=== PATIENT | female | born 1935 | race Caucasian/White ===

== ENCOUNTER 2017-01-19 08:52 | Outpatient (CLI) | payer MEDICARE, OTHER ==
[2016-10-20 02:32] VITALS: BP 124/68
[2017-01-19 09:41] LABS: eGFR (African) > 60; eGFR (Non-African) > 60
== END 2017-01-19 08:53 ==
LOC: LAB 08:52
PROVIDERS: ATTEND Internal Medicine
DX: E11.9 Type 2 diabetes mellitus without complications (principal)
CPT/HCPCS: 36415; 80048; 83036

== ENCOUNTER 2017-03-27 11:10 | Outpatient (CLI) | payer MEDICARE, OTHER ==
[2016-10-20 02:32] VITALS: BP 124/68
[2017-03-27 11:37] LABS: BASOPHILS % 0.7 (0.0-1.5); EOSINOPHILS % 2.1 % (0.0-6.8); MEAN CORPUSCULAR VOLUME 92.6 fl (80.0-100.0); MONOCYTES % 5.5 % (0.0-11.0); NEUTROPHILS # 3.8 # k/uL (1.4-7.7)
[2017-03-27 11:59] LABS: eGFR (African) > 60; eGFR (Non-African) > 60
== END 2017-03-27 11:11 ==
LOC: LAB 11:10
PROVIDERS: ATTEND Internal Medicine Hematology & Oncology
DX: R10.84 Generalized abdominal pain (principal); K21.0 Gastro-esophageal reflux disease with esophagitis; I48.2 Chronic atrial fibrillation; I25.9 Chronic ischemic heart disease, unspecified; M15.9 Polyosteoarthritis, unspecified
CPT/HCPCS: 36415; 80053; 80061; 83880; 84443; 85025

== ENCOUNTER 2017-06-17 19:06 | Emergency (ER) | payer MEDICARE, OTHER ==
[2017-06-17] MEDS ORDERED: Lidocaine 1% 5ml(IM or SUTURE)(PAIN CLINIC) IJ ONE (19:09)
[2017-06-17] MEDS ORDERED: SODIUM BICARBONATE 2.4 MEQ VIAL INJ ONE (19:10)
[2017-06-17] MEDS ORDERED: ceFAZolin SODIUM 1 GM in 0.9 % SODIUM CHLORIDE 50 ML IV ONE (19:59)
[2017-06-17] MEDS ORDERED: DIPH,PERTUSS(ACELL),TET VAC/PF 0.5 ML DISP.SYRIN IM ONE (19:59)
[2017-06-17] MEDS ORDERED: BUPIVACAINE HCL/PF 5 MG/ML 10ML VIAL IJ ONE (20:17)
--- NOTE | 2017-06-17 21:08 | Diagnostic Imaging Report ---
MARLY GEIGER (SUE) - ER [facility] [address] [facility].[address] [address] Report Submission Date: Jun 17, 2017 8:06:53 PM CDT Patient Study Name: EFRAIN FINLEY Date: Jun 17, 2017 7:39:03 PM CDT Modality Type: CR Gender: F Description: UPPER EXTREMITY : 39 Institution: [facility] Physician: MARLY GEIGER (SUE) - ER Examination: Plain film finger History: Injury Comparison exams: None available Findings: 3 views the finger demonstrates a transverse lucency involving the distal phalanx of the 4th digit. Articular degenerative changes. No other acute osseous or soft tissue abnormality. Impression: Transverse fracture distal phalanx 4th digit. Electronically signed on Jun 17, 2017 8:06:53 PM CDT by: Karan HUMMEL
[2017-06-17 21:19] VITALS: BP 155/58
--- NOTE | 2017-06-17 22:54 | ED Physician Documentation ---
Upper Extremity Injury - HISTORIAN Historian: patient, child - HPI Stated Complaint: Left ring finger laceration Chief Complaint: Upper Extremity Injury Onset: just prior to arrival Context: blow Modifying Factors: pain on movement Further Comments: yes (82 year old female patient brought in by family for evaluation of left ring finger. Family reports patient closed finger in car door. C/O severe pain. Last tetanus 01/2016.) - ROS CONST: recent illness (shoulder injury) CVS/RESP: none NEURO: none MS/SKIN/LYMPH: none GI/: denies: nausea, vomiting - PAST HX Past History: Rt handed, diabetes Type 2, other (OA, COPD, GERD) Allergies/Adverse Reactions: Allergies Allergy/AdvReac Type Severity Reaction Status Date / Time No Known Allergies Allergy Verified 06/17/17 20:28 Home Medications: Ambulatory Orders Medication Instructions Recorded Multivitamin [Tab-A-Norm] 1 each PO DAILY 11/18/14 Budesonide [Pulmicort] 0.5 mg IH D 05/20/15 Pramipexole Di-HCl [Mirapex] 0.25 mg PO BID 05/20/15 Ranitidine HCl [Zantac] 150 mg PO D 05/20/15 Folic Acid [FA-8] 0.8 mg PO D 12/17/15 Metformin HCl [Metformin HCl ER] 1,000 mg PO HS 10/20/16 Atorvastatin Calcium [Lipitor] 20 mg PO HS 06/17/17 Cephalexin [Keflex] 500 mg PO QID #40 capsule 06/17/17 Cyanocobalamin [Vitamin B-12] 1,000 mcg PO BID 06/17/17 Gabapentin [Neurontin] 300 mg PO HS 06/17/17 Metformin HCl [Glucophage] 500 mg PO BID 06/17/17 Mupirocin [Bactroban] 1 appl TP BID #1 tube 06/17/17 - SOCIAL HX Smoking History: non-smoker - FAMILY HX Family History: denies: none - VITAL SIGNS Vital Signs: Vital Signs Temp Pulse Resp BP Pulse Ox 86 22 155/58 96 06/17/17 21:15 06/17/17 21:15 06/17/17 21:15 06/17/17 21:15 - REVIEWED ASSESSMENTS Nursing Assessment Reviewed: Yes Vitals Reviewed: Yes Procedures Wound Location: other (right 4th digit) Wound Length: 2 Wound's Depth, Shape: other ("C" shape) Wound Explored: clean Irrigated w/ Saline (ccs): 1,000 Betadine Prep?: No (chlorhexidine) Anesthesia: 1% Lidocaine (digital block at 1915), Other (2030 - Marcaine .5% digital block ) Suture Size/Type: 5:0 Number of Sutures: 6 Deep Layer Suture Size/Type: 5:0 Sterile Dressing Applied?: Yes Splint Applied?: Yes Progress: 2009 Consult with [place] [facility] Dr Huynh, agrees with wash out, antibiotics, closure and splint. Have patient follow up on Thursday at 8:30 in office. Patient tolerated procedure well, flexion and extension intact at DIP joint of 4th phalanx. No tendons visualized. Edges well approximated. Dressing and splint applied by nursing. Reviewed wound care instructions with patient and family . ED Results Lab/Radiology - Radiology Radiology Impressions: Examination: Plain film finger History: Injury Comparison exams: None available Findings: 3 views the finger demonstrates a transverse lucency involving the distal phalanx of the 4th digit. Articular degenerative changes. No other acute osseous or soft tissue abnormality. Impression: Transverse fracture distal phalanx 4th digit. Electronically signed on Jun 17, 2017 8:06:53 PM CDT by: Karan Mason - Orders Orders: ED Orders Category Date Time Status Cleanse with NS and Chlorhexid 1T Care 06/17/17 19:10 Active FINGER 2 VIEWS OR MORE [RAD] Stat Exams 06/17/17 Completed Bupivacaine HCl/Pf [Marcaine 0.5%] Med 06/17/17 20:17 Discontinued 5 mg IJ NOW ONE Diph,Pertuss(Acell),Tet Vac/Pf [Adacel] Med 06/17/17 19:59 Discontinued 0.5 ml IM .ONCE ONE Lidocaine 1% 5ml(IM or SUTURE) [Xylocaine] Med 06/17/17 19:09 Discontinued 50 mg IJ NOW ONE Sodium Bicarbonate [Neut] Med 06/17/17 19:10 Discontinued 2.4 meq INJ NOW ONE ceFAZolin SODIUM [Ancef] 1 gm Med 06/17/17 19:59 Discontinued 0.9 % Sodium Chloride [Sodium Chloride] 50 ml IV NOW Upper Extremity Injury Physic - Physical Exam General Appearance: moderate distress Hand: normal ROM, abrasions (Abrasion proximal to left 4th digit nail bed, volar aspect.), laceration (palmar aspect of left 4th digit. ), stiffness, swelling Wrist: normal inspection, non-tender, no evidence of injury, normal ROM Elbow/Forearm: normal inspection, non-tender, no evidence of injury, normal ROM Neuro/Vascular/Tendon: no vascular compromise, motor nml, sensation nml, ROM nml Skin: warm,dry Resp/CVS: chest non-tender, breath sounds nml, heart sounds nml, no resp. distress, lungs clear, reg. rate & rhythm Abdomen: non-tender, pelvis stable Discharge Clincal Impression: Phalanx, distal fracture of finger Qualifiers: Encounter type: initial encounter Finger: ring finger Fracture type: open Fracture alignment: nondisplaced Laterality: left Qualified Code(s): S62.665B - Nondisplaced fracture of distal phalanx of left ring finger, initial encounter for open fracture Clincal Impression: (Ruled Out): Closed fracture of phalanx of digit of hand Prescriptions: Cephalexin [Keflex] 500 mg PO QID #40 capsule Mupirocin [Bactroban] 1 appl TP BID #1 tube Additional Instructions: Follow up Thursday, June 29, 2017 at 8:[address] Huynh Keep the wound clean and dry until it has healed. You can wash or shower after 24 hours. Do not soak the wound in water and make sure it is dry afterwards (gently pat the area dry with a clean towel). Do not get into a swimming pool, hot tub, cohen or river until your stitches are removed. To remove your dressing, gently pull it off. If needed, you can dampen it with water then gently pull it off. Clean the laceration twice a day with hibiclens and rinse with water clean away any scabbed area Apply thin coat of antibiotic ointment after cleaning the wound. Cover with non-adherent bandage if able. If you have pain, take simple pain relief medication such as Tylenol or ibuprofen. If bandages or dressings get wet, they will need to be changed. Have your stitches removed at your doctors office in 7-10 days. Discharged with bactroban ointment apply a thin coat twice a day. A prescription was sent to the pharmacy. Home Medications: Ambulatory Orders Multivitamin [Tab-A-Norm] 1 each PO DAILY 11/18/14 Budesonide [Pulmicort] 0.5 mg IH D 05/20/15 Pramipexole Di-HCl [Mirapex] 0.25 mg PO BID 05/20/15 Ranitidine HCl [Zantac] 150 mg PO D 05/20/15 Folic Acid [FA-8] 0.8 mg PO D 12/17/15 Metformin HCl [Metformin HCl ER] 1,000 mg PO HS 10/20/16 Atorvastatin Calcium [Lipitor] 20 mg PO HS 06/17/17 Cephalexin [Keflex] 500 mg PO QID #40 capsule 06/17/17 Cyanocobalamin [Vitamin B-12] 1,000 mcg PO BID 06/17/17 Gabapentin [Neurontin] 300 mg PO HS 06/17/17 Metformin HCl [Glucophage] 500 mg PO BID 06/17/17 Mupirocin [Bactroban] 1 appl TP BID #1 tube 06/17/17 Condition: Good Disposition: 01 HOME, SELF-CARE Decision to Admit: NO Decision Time: 21:00
== END 2017-06-17 21:15 | disposition home or self-care (01) ==
LOC: ED 19:06
DX: S62.645B Nondisplaced fracture of proximal phalanx of left ring finger, initial encounter for open fracture (principal); X58.XXXA Exposure to other specified factors, initial encounter; Y93.9 Activity, unspecified; Y99.9 Unspecified external cause status
CPT/HCPCS: 73140; J0690; J3490; 12001; 90471; 96365; 99283; S1016

== ENCOUNTER 2017-08-29 01:24 | Emergency (ER) | payer MEDICARE, OTHER ==
--- NOTE | 2017-08-29 01:52 | ED Physician Documentation ---
Fall - HISTORIAN Historian: patient, child - HPI Stated Complaint: fall/arm,thigh pain Chief Complaint: Fall Additional Information: pt went to sleep in chair awoke when stood up fell forward w/pain lt shoulder and lt hip. had shoulder replacement this shoulder 6 weeks ago had been doingl well had total llhip rt hip sev yrs ago. had not lstood since fall ambulance delivery to [facility] at daughters request Onset: just prior to arrival (approxd 1230), today Where: home Context: lost balance r: mild Associated Symptoms:: no loss of consciousness Location of Pain/Injury: lower extremity. denies: head, neck, face, chest, abdomen, upper back, mid back, lower back, L shoulder Injury to Right Extremity: none Injury to Left Extremity: shoulder, thigh - ROS CONST: no problems. denies: recent illness, fever, sweating, weakness NEURO: denies: dizziness, anxiety, depression MS/SKIN/LYMPH: denies: weakness, numbness, neck pain, back pain, ankle swelling , leg swelling EYES/ENT: denies: problems with vision CVS/RESP: none GI/: denies: nausea - PAST HX Past History: cardiac disease, diabetes Type 1 Allergies/Adverse Reactions: Allergies Allergy/AdvReac Type Severity Reaction Status Date / Time No Known Allergies Allergy Verified 08/29/17 01:32 Home Medications: Ambulatory Orders Medication Instructions Recorded Multivitamin [Tab-A-Norm] 1 each PO DAILY 11/18/14 Pramipexole Di-HCl [Mirapex] 0.25 mg PO BID 05/20/15 Ranitidine HCl [Zantac] 150 mg PO D 05/20/15 Folic Acid [FA-8] 0.8 mg PO D 12/17/15 Metformin HCl [Metformin HCl ER] 1,000 mg PO HS 10/20/16 Atorvastatin Calcium [Lipitor] 20 mg PO HS 06/17/17 Cyanocobalamin [Vitamin B-12] 1,000 mcg PO BID 06/17/17 Gabapentin [Neurontin] 300 mg PO HS 06/17/17 Mupirocin [Bactroban] 1 appl TP BID #1 tube 06/17/17 - SOCIAL HX Smoking History: less than 1 pack/day Alcohol Use: none Drug Use: none - FAMILY HX Family History: no significant history - VITAL SIGNS Vital Signs: Vital Signs Temp Pulse Resp BP Pulse Ox 98.2 F 76 16 131/55 95 08/29/17 01:25 08/29/17 01:25 08/29/17 01:25 08/29/17 01:25 08/29/17 01:25 - REVIEWED ASSESSMENTS Nursing Assessment Reviewed: Yes Vitals Reviewed: Yes Fall Physical Exam - Physical Exam General Appearance: mild distress Head: non-tender, no swelling, no obvious injury Neck: non-tender, painless ROM Eye: ERIKA, EOMI ENT: nml external inspection Resp/CVS: chest non-tender, breath sounds nml, heart sounds nml Abdomen: soft, non-tender Neuro: oriented x3, sensation nml, motor nml, mood/affect nml, other (pt can rom lt shoulder w/o difficulty and palpation is non tender and non remarkable also lt hip is non tende and can stand and walk "as good as usual" w/o sig pain anywhere) Discharge Clincal Impression: fall w/ltshoulder and lt hip pain Referrals: Royal Ferrell MD [Primary Care Provider] - 2 Days Comments: disc cond w/pt and calli after exam they elect no xray at this time. pt walked out of here w/o difficulty. 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 daughter helped the pt by arm Condition: Good Disposition: HOME, SELF-CARE Decision to Admit: [id number] Decision Time: 01:59
[2017-08-29 02:05] VITALS: BP 131/55
== END 2017-08-29 01:45 | disposition home or self-care (01) ==
LOC: ED 01:24
DX: M25.512 Pain in left shoulder (principal); M25.552 Pain in left hip; W19.XXXA Unspecified fall, initial encounter; Y93.9 Activity, unspecified; Y99.9 Unspecified external cause status
CPT/HCPCS: 99283

== ENCOUNTER 2017-09-08 07:34 | Outpatient (CLI) | payer MEDICARE, OTHER ==
[2017-09-06 05:47] VITALS: BP 156/75
[2017-09-08 08:18] LABS: BASOPHILS % 0.6 (0.0-1.5); EOSINOPHILS % 5.2 % (0.0-6.8); MEAN CORPUSCULAR VOLUME 89.8 fl (80.0-100.0); MONOCYTES % 4.6 % (0.0-11.0); NEUTROPHILS # 3.8 # k/uL (1.4-7.7)
[2017-09-08 08:39] LABS: eGFR (African) > 60; eGFR (Non-African) > 60
--- NOTE | 2017-09-08 13:11 | Diagnostic Imaging Report ---
BIGG BRANDT [facility] [address] [facility] [address] [address] Report Submission Date: Sep 08, 2017 9:11:46 AM CHARITY FUNDRAISER Patient Study Name: EFRAIN FINLEY Date: Sep 08, 2017 8:04:32 AM CHARITY FUNDRAISER Modality Type: US Gender: F Description: US ABD LIMITED : 39 Institution: [facility] Physician: BIGG BRANDT Examination: Ultrasound gallbladder History: Distended gallbladder. Comparison exam: CT scan dated 04 September 2017 Findings: Sonographic evaluation of the right upper quadrant demonstrates the gallbladder without stones or sludge. Gallbladder wall measures 2.6 mm. Common bile duct measures 5.6 mm. No intrahepatic biliary dilation. Liver demonstrates normal homogeneous echogenicity. No mass or cyst. Normal flow on color analysis. Normal Doppler waveforms. Right kidney measures 10.9 cm in length. No cortical mass or cyst. No hydronephrosis. Pancreatic region without gross irregularity. Impression: No gallstone or obstruction. Unremarkable abdominal ultrasound. Electronically signed on Sep 08, 2017 9:11:46 AM CHARITY FUNDRAISER by: Karan HUMMEL
[2017-09-08 21:08] LABS: SERUM IRON 34 ug/dL (37-145)
== END 2017-09-08 08:24 ==
LOC: RAD 07:34
PROVIDERS: ATTEND Family Medicine
DX: R10.11 Right upper quadrant pain (principal); I10 Essential (primary) hypertension; I48.2 Chronic atrial fibrillation; J44.9 Chronic obstructive pulmonary disease, unspecified; R10.84 Generalized abdominal pain; E03.9 Hypothyroidism, unspecified; K21.0 Gastro-esophageal reflux disease with esophagitis
CPT/HCPCS: 36415; 76705; 80053; 83540; 83550; 83690; 84443; 85025

== ENCOUNTER 2017-09-11 19:43 | Inpatient (IN) | payer MEDICARE, OTHER ==
[2017-09-11] MEDS ORDERED: 0.9 % SODIUM CHLORIDE 500 ML IV ONE (21:06)
[2017-09-11] MEDS ORDERED: IPRATROPIUM/ALBUTEROL SULFATE 3 ML AMPUL.NEB NEB ONE (21:06)
[2017-09-11] MEDS ORDERED: BUDESONIDE 0.5MG/2ML AMPUL.NEB NEB ONE (21:10)
[2017-09-11 21:38] LABS: BASOPHILS % 0.9 (0.0-1.5); EOSINOPHILS % 4.4 % (0.0-6.8); MEAN CORPUSCULAR HEMOGLOBIN 28.4 pg (28.0-34.0); MEAN CORPUSCULAR VOLUME 88.2 fl (80.0-100.0); MONOCYTES % 5.6 % (0.0-11.0); NEUTROPHILS # 3.6 # k/uL (1.4-7.7)
[2017-09-11 21:40] LABS: eGFR (African) > 60; eGFR (Non-African) > 60
[2017-09-11] MEDS ORDERED: 0.9 % SODIUM CHLORIDE 1,000 ML IV SCH (22:10)
[2017-09-11] MEDS ORDERED: 0.9 % SODIUM CHLORIDE 1,000 ML IV ONE (22:11)
[2017-09-11] MEDS ORDERED: CITALOPRAM HYDROBROMIDE 20 MG TABLET PO ONE (23:52)
[2017-09-12] MEDS: IPRATROPIUM/ALBUTEROL SULFATE 3 ML AMPUL.NEB NEB SCH ×7 (00:15→21:06)
[2017-09-12] MEDS: FLUDROCORTISONE ACETATE 0.1 MG TABLET PO SCH ×2 (00:16→09:02)
[2017-09-12] MEDS: 0.9 % SODIUM CHLORIDE 1,000 ML IV SCH ×3 (00:16→23:30)
[2017-09-12] MEDS: LEVOTHYROXINE SODIUM 100 MCG TABLET PO SCH ×2 (00:16→06:00)
[2017-09-12] MEDS: FOLIC ACID 1 MG TABLET PO SCH ×2 (00:16→09:03)
[2017-09-12] MEDS ORDERED: CITALOPRAM HYDROBROMIDE 20 MG TABLET ONE (00:20)
[2017-09-12] MEDS ORDERED: ENOXAPARIN SODIUM 30 MG/0.3 ML DISP.SYRIN SQ ONE ×2 (00:20→14:13)
[2017-09-12] MEDS: ENOXAPARIN SODIUM 30 MG/0.3 ML DISP.SYRIN SQ SCH (00:25)
[2017-09-12 00:29] VITALS: BMI 29.2
--- NOTE | 2017-09-12 01:01 | Diagnostic Imaging Report ---
MANUEL HARRISON [facility] [address] [facility] [address] [address] Report Submission Date: Sep 11, 2017 10:03:38 PM BUSINESS SYSTEMS ADVISOR Patient Study Name: EFRAIN FINLEY Date: Sep 11, 2017 9:35:38 PM BUSINESS SYSTEMS ADVISOR Modality Type: CR Gender: F Description: CHEST : 39 Institution: [facility] Physician: MANUEL HARRISON Chest, AP portable History: Emphysema Findings: There are postoperative changes consistent with bilateral shoulder arthroplasty. Patient is status post anterior cervical fusion. Stimulator electrodes superimpose the midthoracic spine. There is no infiltrate, effusion or pneumothorax. Heart size and pulmonary vascularity are normal. There is calcification in the thoracic aorta. Since 03 September 2017, no significant change has occurred. Impression: No active disease and no interval change. Electronically signed on Sep 11, 2017 10:03:38 PM BUSINESS SYSTEMS ADVISOR by: Ruben HUMMEL
[2017-09-12] MEDS ORDERED: FLUDROCORTISONE ACETATE 0.1 MG TABLET PO ONE (02:40)
[2017-09-12] MEDS ORDERED: MULTIVITAMIN 1 EACH TABLET ONE (02:40)
[2017-09-12] MEDS ORDERED: CYANOCOBALAMIN (VITAMIN B12) 1,000 MCG TABLET PO ONE ×2 (02:40→14:14)
[2017-09-12] MEDS ORDERED: LEVOTHYROXINE SODIUM 100 MCG TABLET PO ONE (02:41)
[2017-09-12] MEDS ORDERED: FOLIC ACID 1 MG TABLET PO ONE (02:41)
[2017-09-12 06:15] LABS: APPEARANCE,URINE CLEAR (CLEAR); COLOR,URINE YELLOW (YELLOW); OCCULT BLOOD,URINE NEGATIVE (NEGATIVE); PH URINE 5.5 (5.0 - 8.0); UROBILINOGEN URINE 0.2 Eu (0.2-1.0)
--- NOTE | 2017-09-12 06:15 | ED Physician Documentation ---
General Adult - HISTORIAN Historian: child - HPI Stated Complaint: soa with activity through out the day Chief Complaint: General Adult Additional Information: somnolent Onset: other (today) Timing: still present Severity: moderate Modifying Factors: hx of multiple medical problems Further Comments: no Last known Well Date: 09/10/17 Last Known Well Time: 20:00 - ROS CONST: recent illness EYES/ENT: none CVS/RESP: shortness of breath (hx of copd) GI/: none MS/SKIN/LYMPH: none NEURO/PSYCH: denies: headache, fainting, dizziness, tingling, numbness, difficulty walking, difficulty with speech, anxiety, depression - PAST HX Past History: COPD, other (chf, hyponatremia, gerd) Other History: diabetes Type 2, other (depression, hyperlipidemia) Surgeries/Procedures: other (see nurses notes) Immunizations: referred to PCP Allergies/Adverse Reactions: Allergies Allergy/AdvReac Type Severity Reaction Status Date / Time No Known Allergies Allergy Verified 09/11/17 20:21 Home Medications: Ambulatory Orders Medication Instructions Recorded Multivitamin [Tab-A-Norm] 1 each PO DAILY 11/18/14 Pramipexole Di-HCl [Mirapex] 0.25 mg PO BID 05/20/15 Ranitidine HCl [Zantac] 150 mg PO D 05/20/15 Folic Acid [FA-8] 0.8 mg PO D 12/17/15 Metformin HCl [Metformin HCl ER] 1,000 mg PO HS 10/20/16 Atorvastatin Calcium [Lipitor] 20 mg PO HS 06/17/17 Cyanocobalamin [Vitamin B-12] 1,000 mcg PO BID 06/17/17 Gabapentin [Neurontin] 300 mg PO HS 06/17/17 - SOCIAL HX Smoking History: non-smoker, quit greater than 1 year Alcohol Use: none Drug Use: none - FAMILY HX Family History: No - VITAL SIGNS Vital Signs: Vital Signs Temp Pulse Resp BP Pulse Ox 97.1 F L 71 20 112/49 96 09/12/17 06:00 09/12/17 06:00 09/12/17 06:00 09/12/17 06:00 09/12/17 06:00 - REVIEWED ASSESSMENTS Nursing Assessment Reviewed: Yes Vitals Reviewed: Yes Progress - Results/Orders Results/Orders: labs and cxr ordered - Progress Progress: pt. treated with NS in ER Critical Care Note - Critical Care Note Total Time (mins): 60 ED Results Lab/Radiology - Lab Results Lab Results: Lab Results 09/11/17 09/11/17 09/11/17 21:53 21:18 21:18 WBC 7.00 K/ul K/ul (4.00-12.00) RBC 4.09 M/ul M/ul (3.90-5.20) Hgb 11.6 g/dL L g/dL (12.0-16.0) Hct 36.1 % % (34.5-46.5) MCV 88.2 fl fl (80.0-100.0) MCH 28.4 pg pg (28.0-34.0) MCHC 32.2 g/dL g/dL (30.0-36.0) RDW 14.1 % % (11.3-14.3) Plt Count 392 K/mm3 K/mm3 (130-400) Neut % (Auto) 51.4 % % (39.0-79.0) Lymph % (Auto) 36.2 % % (16.0-50.0) Payette % (Auto) 5.6 % % (0.0-11.0) Eos % (Auto) 4.4 % % (0.0-6.8) Baso % (Auto) 0.9 (0.0-1.5) Neut # (Auto) 3.6 # k/uL # k/uL (1.4-7.7) Lymph # (Auto) 2.6 # k/uL # k/uL (0.6-4.0) Payette # (Auto) 0.4 # k/uL # k/uL (0.0-0.9) Eos # (Auto) 0.3 # k/uL # k/uL (0.0-0.6) Baso # (Auto) 0.1 # k/uL # k/uL (0.0-0.5) Reactive Lymphs % 1.5 % % (0.0-5.0) Reactive Lymphs # 0.1 # k/uL # k/uL (0.0-0.8) PT INR APTT Sodium 126 mmol/L L mmol/L (136-145) Potassium 4.5 mmol/L mmol/L (3.5-5.1) Chloride 88 mmol/L L mmol/L (98-107) Carbon Dioxide 30 mmol/L mmol/L (22-30) BUN 27 mg/dL H mg/dL (7-17) Creatinine 1.10 mg/dL H mg/dL (0.52-1.04) Estimated Creat Clear 48 Est GFR ( Amer) > 60 (60 - ) Est GFR (Non-Af Amer) > 60 (60 - ) Glucose 216 mg/dL H mg/dL (74-106) Lactate 1.6 U/L U/L (0.7-2.1) Calcium 9.1 mg/dL mg/dL (8.4-10.2) Total Bilirubin 0.2 mg/dL mg/dL (0.2-1.3) AST 24 U/L U/L (15-46) ALT 30 U/L U/L (13-69) Alkaline Phosphatase 84 U/L U/L (38-126) Troponin I NT-Pro-B Natriuret Pep Total Protein 6.5 g/dL g/dL (6.3-8.2) Albumin 3.5 g/dL g/dL (3.5-5.0) Lipase 402 U/L H U/L (23-300) 09/11/17 09/11/17 20:18 19:22 WBC RBC Hgb Hct MCV MCH MCHC RDW Plt Count Neut % (Auto) Lymph % (Auto) Payette % (Auto) Eos % (Auto) Baso % (Auto) Neut # (Auto) Lymph # (Auto) Payette # (Auto) Eos # (Auto) Baso # (Auto) Reactive Lymphs % Reactive Lymphs # PT 9.3 Seconds L Seconds (9.4-11.6) INR 0.89 L (0.9-1.2) APTT 25.0 Seconds Seconds (24.5-32.8) Sodium Potassium Chloride Carbon Dioxide BUN Creatinine Estimated Creat Clear Est GFR ( Amer) Est GFR (Non-Af Amer) Glucose Lactate Calcium Total Bilirubin AST ALT Alkaline Phosphatase Troponin I < 0.03 ng/mL L ng/mL (0.03-0.06) NT-Pro-B Natriuret Pep 605.0 pg/mL H pg/mL (15.0-450.0) Total Protein Albumin Lipase - Radiology Radiology Impressions: cxr clear - Orders Orders: ED Orders Category Date Time Status Activity as ordered D Care 09/11/17 23:52 Active Assess pulse oximetry Q4H Care 09/11/17 23:52 Active Continuous EKG monitoring Q1H Care 09/11/17 23:52 Active Document Bowel Movement Q8H Care 09/11/17 23:[address] Ferrell NOW Care 09/11/17 23:52 Ordered Further Nursing Orders [id number] Care 09/11/17 23:52 Active Further Nursing Orders D Care 09/11/17 23:52 Active Inpatient Telemetry NOW Care 09/11/17 23:52 Ordered Monitor for changes in mental Q4 Care 09/11/17 23:52 Active Obtain weight DAILY@0500 Care 09/11/17 23:[address] IV Lock 1T Care 09/11/17 21:06 Completed Vital Signs Q4 Care 09/11/17 23:52 Active No Concentrated Sweets Diet 09/11/17 Breakfast Ordered Regular Diet 09/11/17 Breakfast Ordered CHEST 1 VIEW [RAD] Routine Exams 09/11/17 Completed BMP Routine Lab 09/12/17 06:00 Ordered CBC/PLATELET/DIFF Routine Lab 09/11/17 21:18 Completed CMP Routine Lab 09/11/17 21:18 Completed LACTATE Routine Lab 09/11/17 21:18 Completed LIPASE Routine Lab 09/11/17 21:53 Completed NT-proBNP Routine Lab 09/11/17 19:22 Completed PT-INR Routine Lab 09/11/17 20:18 Completed PTT Routine Lab 09/11/17 20:18 Completed TROPONIN I (cTnI) Routine Lab 09/11/17 19:22 Completed 0.9 % Sodium Chloride [Normal Saline] 1,000 ml Med 09/11/17 22:10 Discontinued IV .Q1H 0.9 % Sodium Chloride [Normal Saline] 1,000 ml Med 09/11/17 22:11 Discontinued IV .STK-MED 0.9 % Sodium Chloride [Normal Saline] 1,000 ml Med 09/11/17 23:52 Ordered IV Q10H 0.9 % Sodium Chloride [Normal Saline] 500 ml Med 09/11/17 21:06 Discontinued IV NOW Atorvastatin Calcium [Lipitor] Med 09/12/17 21:00 Ordered 20 mg PO HS Budesonide [Pulmicort] Med 09/11/17 21:10 Discontinued 0.5 mg NEB 1T ONE Budesonide [Pulmicort] Med 09/12/17 09:00 Ordered 0.5 mg NEB BID Citalopram Hydrobromide [Celexa] Med 09/11/17 23:52 Once 10 mg PO NOW ONE Cyanocobalamin [Vitamin B-12] Med 09/12/17 09:00 Ordered 1,000 mcg PO BID Enoxaparin Sodium [Lovenox] Med 09/11/17 23:52 Ordered 30 mg SQ QD Fludrocortisone Acetate [Florinef] Med 09/11/17 23:52 Ordered 0.1 mg PO DAILY Folic Acid [Folvite] Med 09/11/17 23:52 Ordered 1 mg PO DAILY Gabapentin [Neurontin] Med 09/12/17 21:00 Ordered 300 mg PO HS Ipratropium/Albuterol Sulfate [Duoneb] Med 09/11/17 21:06 Discontinued 3 ml NEB NOW ONE Ipratropium/Albuterol Sulfate [Duoneb] Med 09/11/17 23:52 Ordered 3 ml NEB Q4 Levothyroxine Sodium [Synthroid] Med 09/11/17 23:52 Ordered 112 mcg PO 0700 Metformin HCl [Glucophage] Med 09/12/17 07:30 Ordered 1,000 mg PO [id number] Multivitamin [Tab-A-Norm] Med 09/12/17 09:00 Ordered 1 each PO DAILY Umeclidinium Brm/Vilanterol Tr [Anoro Ellipta 62.5-25 Med 09/12/17 09:00 Ordered Mcg INH] 1 puff IH DAILY Resuscitation Status Routine Oth 09/11/17 23:52 Ordered Oxygen Daily Oxygen 09/11/17 23:52 Ordered EKG WITH COMPARISON Routine Ther 09/11/17 Stop Req Transfer Routine Transfer 09/11/17 Completed General Adult Physical Exam - PHYSICAL EXAM GENERAL APPEARANCE: mild distress EENT: eye inspection normal, ENT inspection normal, pharynx normal, no signs of dehydration, ERIKA, no nystagmus, TM's nml NECK: normal inspection, thyroid normal, supple RESPIRATORY: no resp distress, chest non-tender, breath sounds normal CVS: reg rate & rhythm, heart sounds normal, equal pulses ABDOMEN: soft, no organomegaly, normal bowel sounds BACK: normal inspection, no CVA tenderness SKIN: warm/dry, normal color EXTREMITIES: non-tender, normal range of motion, no evidence of injury, no edema NEURO: other (somnolent) Discharge Clincal Impression: Hyponatremia Condition: Stable Disposition: ADMITTED INPATIENT Decision to Admit: [id number] Date of Decison to Admit: 09/11/17 Decision Time: 07:00
[2017-09-12 07:27] LABS: eGFR (African) > 60; eGFR (Non-African) > 60
--- NOTE | 2017-09-12 08:42 | History and Physical Report ---
History of Present Illnes - History of Present Illness Reason for Visit: found down History of Present Illness: Aure is an 82yo woman with a history of multiple medical problems including heart disease, DM, COPD, h/o pancreatitis and chronic hyponatremia. Her daughter found her on the floor by her chair yesterday after Aure failed to answer the phone multiple times. Aure was transferred to [facility] where she was somnolent and found to have sodium level of sodium level of 126, it usually hovers around 130. WBC count was normal and chest Xray was clear. She was admitted to the floor and put on oral fluid restrictions, IV normal saline, and Solu-Cortef. Currently she reports feeling fine. She has no memory of the events preceding her hospitalization yesterday. She denies pain. 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: Peripheral neuropathy Renal/: Other (chronic hyponatremia) Endocrine: Diabetes - Past Surgical History Past Surgical History: Appendectomy, Hysterectomy (total), Total Hip Replacement , Tonsillectomy, Other (AP Bladder suspension, PCI with stenting, nerve stimulator implantation, total shoulder replacement) - Past Social History Smoke: <1 pack per day Alcohol: None Drugs: None Lives: Alone Domestic Violence: Negative - Health Maintenance Health Maintenance: Cholesterol, Influenza Vaccine, Pneumococcal Vaccine, Mammogram Pneumonia Vaccine: No (already had) Resuscitation Status: Resusciation Status Resuscitation Status Full Code Review of Systems - Review of Systems Constitutional: negative: Fever, Chills Eyes: negative: pain, redness ENT: negative: Ear Pain, Nose Pain Respiratory: negative: Cough, Pleuritic Pain Cardiovascular: negative: Chest Pain, Edema Gastrointestinal: negative: Nausea, Abdominal Pain Genitourinary: negative: Dysuria, Incontinence Musculoskeletal: negative: Neck Pain, Back Pain Skin: negative: Rash, Lesions Neurological: Weakness. negative: Change in Speech - Medications/Allergies Allergies/Adverse Reactions: Allergies Allergy/AdvReac Type Severity Reaction Status Date / Time No Known Allergies Allergy Verified 09/11/17 20:21 Current Inpatient Medications: Current Inpatient Medications Albuterol/Ipratropium (Duoneb) 3 ml NEB Q4 [facility] Last Admin: 09/12/17 04:44 Dose: 3 ml Atorvastatin Calcium (Lipitor) 20 mg PO HS [facility] Budesonide (Pulmicort) 0.5 mg NEB BID [facility] Citalopram Hydrobromide (Celexa) 10 mg PO NOW ONE Stop: 09/11/17 23:53 Last Admin: 09/12/17 00:25 Dose: 10 mg Cyanocobalamin (Vitamin B-12) 1,000 mcg PO BID [facility] Enoxaparin Sodium (Lovenox) 30 mg SQ QD [facility] Stop: 09/24/17 23:53 Last Admin: 09/12/17 00:25 Dose: 30 mg Fludrocortisone Acetate (Florinef) 0.1 mg PO DAILY [facility] Last Admin: 09/12/17 00:16 Dose: Not Given Folic Acid (Folvite) 1 mg PO DAILY [facility] Last Admin: 09/12/17 00:16 Dose: Not Given Gabapentin (Neurontin) 300 mg PO [facility] Sodium Chloride (Normal Saline) 1,000 mls @ 50 mls/hr IV Q10H [facility] Last Admin: 09/12/17 07:43 Dose: 50 mls/hr Levothyroxine Sodium (Synthroid) 112 mcg PO 0700 [facility] Last Admin: 09/12/17 06:00 Dose: Not Given Metformin HCl (Glucophage) 1,000 mg PO [id number] [facility] Last Admin: 09/12/17 07:41 Dose: 1,000 mg Miscellaneous (Umeclidinium Brm/Vilanterol Tr [Anoro Ellipta 62.5-25 Mcg Inh]) 1 puff IH DAILY [facility] Multivitamins (Tab-A-Norm) 1 each PO DAILY [facility] Exam - Exam Vital Signs: Vital Signs (72 hours) 09/11/17 09/11/17 09/12/17 23:51 23:52 00:34 Temperature 98.5 F Pulse Rate 87 71 Pulse Rate [ 67 Left Pulse ox] Respiratory 20 Rate Blood Pressure 127/51 [Right Arm] O2 Sat by Pulse 96 96 Oximetry 09/12/17 09/12/17 09/12/17 00:44 01:50 02:00 Temperature 97.9 F Pulse Rate 72 70 Pulse Rate [ 72 Left Pulse ox] Respiratory 18 Rate Blood Pressure 112/53 [Right Arm] O2 Sat by Pulse 97 Oximetry 09/12/17 09/12/17 09/12/17 02:25 03:47 03:48 Temperature Pulse Rate 68 67 Pulse Rate [ Left Pulse ox] Respiratory Rate Blood Pressure [Right Arm] O2 Sat by Pulse 97 Oximetry 09/12/17 09/12/17 09/12/17 05:00 06:00 08:22 Temperature 97.1 F L 98.7 F Pulse Rate 78 70 Pulse Rate [ 71 72 Left Pulse ox] Respiratory 20 16 Rate Blood Pressure 112/49 90/42 [Right Arm] O2 Sat by Pulse 96 97 Oximetry General: Alert, Oriented to Person, Oriented to Place, Oriented to Time, Cooperative, No acute distress HEENT: Atraumatic, PERRLA, EOMI Neck: No: Stridor, Rigidity Lungs: Clear to auscultation. No: Respiratory Distress Cardiovascular: Regular rate, Normal S1, Normal S2 Abdomen: Soft, No tenderness Integumentary: Normal, [place], Warm, Dry Extremities: No cyanosis, No edema, No tenderness/swelling Neurological: Normal speech, Normal tone, Cranial nerves 3-12 NL Psych/Mental Status: Mental status NL, Appropriate Affect - Laboratory Results Laboratory Results: Laboratory Results 09/12/17 06:35 Sodium 130 L Potassium 4.1 Chloride 98 Carbon Dioxide 26 BUN 25 H Creatinine 1.00 Estimated Creat Clear 58 Est GFR ( Amer) > 60 Est GFR (Non-Af Amer) > 60 Glucose 122 H Calcium 8.2 L Assessment/Plan - Assessment/Plan (1) Hyponatremia Status: Acute Current Visit: Yes Assessment: Na on admission 126, now 130 Plan: continue oral fluid restriction, IV fluid, and Solu-Cortef (2) Altered mental status Status: Acute Current Visit: No Assessment: Pt was somnolent in ER, now AAOx3 although daughter says they just talked about the date. Pt is sitting up eating breakfast. Has good appetite. (3) Anemia Status: Chronic Current Visit: No Qualifiers: Anemia type: unspecified type Qualified Code(s): D64.9 - Anemia, unspecified Plan: Hgb 11.6, will monitor, Pt stable (4) Diabetes mellitus type 2 Status: Acute Current Visit: No Plan: Continue Metformin (5) Chronic obstructive pulmonary disease Status: Acute Current Visit: No Assessment: Stable Plan: continue Duoneb and Pulmicort as ordered VTE Assessment - RISK FACTOR SCORE VTE RISK FACTOR SCORES: AGE OVER 60 YEARS, SMOKER - RISK VTE MODERATE RISK: SCORE OF 2 (RISK PROXIMAL DVT 2-4%) PROPHYAXIS NEEDED
[2017-09-12] MEDS: MULTIVITAMIN 1 EACH TABLET PO SCH (09:03)
[2017-09-12] MEDS: CYANOCOBALAMIN (VITAMIN B12) 1,000 MCG TABLET PO SCH ×2 (09:03→21:04)
[2017-09-12] MEDS: [UNRECOGNIZED DRUG - MIXTURE] IH SCH (09:03)
[2017-09-12] MEDS ORDERED: IPRATROPIUM/ALBUTEROL SULFATE 3 ML AMPUL.NEB NEB ONE ×3 (09:10→20:26)
[2017-09-12] MEDS ORDERED: BUDESONIDE 0.5MG/2ML AMPUL.NEB NEB ONE ×2 (09:10→20:25)
[2017-09-12] MEDS: BUDESONIDE 0.5MG/2ML AMPUL.NEB NEB SCH ×2 (09:33→21:09)
[2017-09-12] MEDS ORDERED: 0.9 % SODIUM CHLORIDE 1,000 ML IV ONE (10:07)
[2017-09-12] MEDS ORDERED: SALINE FLUSH 10 ML DISP.SYRIN IVF ONE (10:15)
[2017-09-12] MEDS ORDERED: ATORVASTATIN CALCIUM 80 MG TABLET PO ONE (14:14)
[2017-09-12] MEDS ORDERED: GABAPENTIN 300 MG CAPSULE ONE (14:14)
[2017-09-12] MEDS ORDERED: GABAPENTIN 300 MG CAPSULE PO SCH (21:00)
[2017-09-12] MEDS ORDERED: ATORVASTATIN CALCIUM 80 MG TABLET PO SCH (21:00)
[2017-09-13] MEDS ORDERED: IPRATROPIUM/ALBUTEROL SULFATE 3 ML AMPUL.NEB NEB ONE ×5 (00:32→12:36)
[2017-09-13] MEDS: IPRATROPIUM/ALBUTEROL SULFATE 3 ML AMPUL.NEB NEB SCH ×4 (00:33→12:54)
[2017-09-13] MEDS: ENOXAPARIN SODIUM 30 MG/0.3 ML DISP.SYRIN SQ SCH (00:37)
[2017-09-13] MEDS ORDERED: FLUDROCORTISONE ACETATE 0.1 MG TABLET PO ONE (02:35)
[2017-09-13] MEDS ORDERED: FOLIC ACID 1 MG TABLET PO ONE (02:35)
[2017-09-13] MEDS ORDERED: CYANOCOBALAMIN (VITAMIN B12) 1,000 MCG TABLET PO ONE (02:35)
[2017-09-13] MEDS ORDERED: MULTIVITAMIN 1 EACH TABLET ONE (02:35)
[2017-09-13] MEDS ORDERED: SALINE FLUSH 10 ML DISP.SYRIN IVF ONE (04:09)
[2017-09-13 06:58] LABS: eGFR (African) > 60; eGFR (Non-African) > 60
[2017-09-13] MEDS ORDERED: LEVOTHYROXINE SODIUM 100 MCG TABLET PO SCH (07:00)
[2017-09-13] MEDS: FLUDROCORTISONE ACETATE 0.1 MG TABLET PO SCH (07:36)
[2017-09-13] MEDS: [UNRECOGNIZED DRUG - MIXTURE] IH SCH (07:37)
[2017-09-13] MEDS: CYANOCOBALAMIN (VITAMIN B12) 1,000 MCG TABLET PO SCH (07:37)
[2017-09-13] MEDS: FOLIC ACID 1 MG TABLET PO SCH (07:37)
[2017-09-13] MEDS: MULTIVITAMIN 1 EACH TABLET PO SCH (07:37)
[2017-09-13] MEDS ORDERED: BUDESONIDE 0.5MG/2ML AMPUL.NEB NEB ONE (07:50)
[2017-09-13] MEDS: BUDESONIDE 0.5MG/2ML AMPUL.NEB NEB SCH (08:28)
[2017-09-13 08:29] LABS: MEAN CORPUSCULAR HEMOGLOBIN 28.4 pg (28.0-34.0); MEAN CORPUSCULAR VOLUME 95.4 fl (80.0-100.0)
--- NOTE | 2017-09-13 10:40 | Inpatient Progress Note ---
Subjective - Required Recertification Statement I anticipate X number of days because-include discharge plan: 0, discharge to home today - Review of Systems Events since last encounter: Pt c/o CP yesterday evening. EKG was performed and troponins x 3 were measured. No changes were found on EKG and troponins were all <0.3. The chest pain resolved after breathing treatment was performed and has not recurred. This morning she has been up walking around well without assistance and feels ready to go home. General: Denies: Chills, Fatigue Pulmonary: Denies: Dyspnea, Pleuritic Chest Pain Cardiovascular: Denies: Palpitations, Light Headedness Gastrointestinal: Denies: Nausea, Vomiting Musculoskeletal: Denies: Neck Pain, Arm Pain Neurological: Denies: Weakness, Change in Speech, Confusion Objective - Exam Vitals and I&O: Vital Signs Temp 97 F L 09/13/17 08:52 Pulse 81 09/13/17 08:52 Resp 16 09/13/17 08:52 BP 108/97 09/13/17 08:52 Pulse Ox 97 09/13/17 08:52 Intake & Output 09/12/17 09/12/17 09/13/17 11:59 23:59 11:59 Intake Total 1160 1380 2140 Output Total 1250 Balance 8555 841 5896 Weight 70.307 kg 159.8 kg Intake: IV 800 100 Left Antecubital 800 right forearm 100 Oral 360 1380 2040 Output: Urine 1050 Stool 200 Other: Voiding Method Toilet Toilet # Voids 1 1 10 # Bowel Movements 0 General: Alert, Oriented to Person, Oriented to Place, Oriented to Time, Cooperative, No acute distress HEENT: Atraumatic, PERRLA Lungs: Clear to auscultation. No: Respiratory Distress, Wheezes, Rhonchi Cardiovascular: Regular rate, Normal S1, Normal S2 Abdomen: No: Distended, Rigid Skin: Normal, [place], Warm, Dry Neurological: Normal speech, Normal tone. No: Generalized Weakness Psych/Mental Status: Mental status NL, Mood NL, Appropriate Affect - Results Results: Laboratory Results WBC 6.30 K/ul (4.00-12.00) 09/13/17 06:00 RBC 3.34 M/ul (3.90-5.20) L 09/13/17 06:00 Hgb 9.5 g/dL (12.0-16.0) L 09/13/17 06:00 Hct 31.9 % (34.5-46.5) L 09/13/17 06:00 MCV 95.4 fl (80.0-100.0) 09/13/17 06:00 MCH 28.4 pg (28.0-34.0) 09/13/17 06:00 MCHC 29.8 g/dL (30.0-36.0) L 09/13/17 06:00 RDW 13.9 % (11.3-14.3) 09/13/17 06:00 Plt Count 300 K/mm3 (130-400) 09/13/17 06:00 Neut % (Auto) 51.4 % (39.0-79.0) 09/11/17 21:18 Lymph % (Auto) 36.2 % (16.0-50.0) 09/11/17 21:18 [place] % (Auto) 5.6 % (0.0-11.0) 09/11/17 21:18 Eos % (Auto) 4.4 % (0.0-6.8) 09/11/17 21:18 Baso % (Auto) 0.9 (0.0-1.5) 09/11/17 21:18 Neut # (Auto) 3.6 # k/uL (1.4-7.7) 09/11/17 21:18 Lymph # (Auto) 2.6 # k/uL (0.6-4.0) 09/11/17 21:18 [place] # (Auto) 0.4 # k/uL (0.0-0.9) 09/11/17 21:18 Eos # (Auto) 0.3 # k/uL (0.0-0.6) 09/11/17 21:18 Baso # (Auto) 0.1 # k/uL (0.0-0.5) 09/11/17 21:18 Reactive Lymphs % 1.5 % (0.0-5.0) 09/11/17 21:18 Reactive Lymphs # 0.1 # k/uL (0.0-0.8) 09/11/17 21:18 PT 9.3 Seconds (9.4-11.6) L 09/11/17 20:18 INR 0.89 (0.9-1.2) L 09/11/17 20:18 APTT 25.0 Seconds (24.5-32.8) 09/11/17 20:18 Sodium 130 mmol/L (136-145) L 09/13/17 06:00 Potassium 3.9 mmol/L (3.5-5.1) 09/13/17 06:00 Chloride 97 mmol/L (98-107) L 09/13/17 06:00 Carbon Dioxide 27 mmol/L (22-30) 09/13/17 06:00 BUN 24 mg/dL (7-17) H 09/13/17 06:00 Creatinine 1.00 mg/dL (0.52-1.04) 09/13/17 06:00 Estimated Creat Clear 60 09/13/17 06:00 Est GFR ( Amer) > 60 (60-) 09/13/17 06:00 Est GFR (Non-Af Amer) > 60 (60-) 09/13/17 06:00 Glucose 125 mg/dL (74-106) H 09/13/17 06:00 Lactate 1.6 U/L (0.7-2.1) 09/11/17 21:18 Calcium 8.5 mg/dL (8.4-10.2) 09/13/17 06:00 Total Bilirubin 0.2 mg/dL (0.2-1.3) 09/13/17 06:00 AST 17 U/L (15-46) 09/13/17 06:00 ALT 32 U/L (13-69) 09/13/17 06:00 Alkaline Phosphatase 78 U/L (38-126) 09/13/17 06:00 Troponin I < 0.03 ng/mL (0.03-0.06) L 09/13/17 05:15 NT-Pro-B Natriuret Pep 605.0 pg/mL (15.0-450.0) H 09/11/17 19:22 Total Protein 5.9 g/dL (6.3-8.2) L 09/13/17 06:00 Albumin 3.1 g/dL (3.5-5.0) L 09/13/17 06:00 Lipase 402 U/L (23-300) H 09/11/17 21:53 Urine Color Yellow (YELLOW) 09/11/17 20:15 Urine Appearance Clear (CLEAR) 09/11/17 20:15 Urine pH 5.5 (5.0 - 8.0) 09/11/17 20:15 Ur Specific Black 1.010 (1.010-1.030) 09/11/17 20:15 Urine Protein Negative mg/dL (NEGATIVE) 09/11/17 20:15 Urine Ketones Negative mg/dL (NEGATIVE) 09/11/17 20:15 Urine Occult Blood Negative (NEGATIVE) 09/11/17 20:15 Urine Nitrite Negative (NEGATIVE) 09/11/17 20:15 Urine Bilirubin Negative (NEGATIVE) 09/11/17 20:15 Urine Urobilinogen 0.2 Eu (0.2-1.0) 09/11/17 20:15 Ur Leukocyte Esterase Negative (NEGATIVE) 09/11/17 20:15 Urine Glucose Negative mg/dL (NEGATIVE) 09/11/17 20:15 Assessment/Plan - Assessment/Plan (1) Hyponatremia Status: Acute Current Visit: Yes Assessment: Stable after fluid restrictions were lifted yesterday and IV fluids were held after 8:30 this morning. Pt clinically well. Plan: Continue fludrocortisone at home (2) Altered mental status Status: Resolved Current Visit: No Assessment: resolved Plan: continue Fludrocortisone at home, AMS thought secondary to acute on chronic hyponatremia (3) Anemia Status: Chronic Current Visit: No Qualifiers: Anemia type: unspecified type Qualified Code(s): D64.9 - Anemia, unspecified Assessment: Hgb dropped from 11.6 to 9.5. H/o chronic mild anemia. Pt clinically well. Will recheck later this week as OP. (4) Diabetes mellitus type 2 Status: Chronic Current Visit: No Assessment: Stable Plan: Continue metformin (5) Chronic obstructive pulmonary disease Status: Chronic Current Visit: No Assessment: Stable Plan: Continue duoneb and pulmicort as prescribed at home.
[2017-09-13] MEDS: 0.9 % SODIUM CHLORIDE 1,000 ML IV SCH ×2 (11:16→16:46)
[2017-09-13 14:06] VITALS: BP 156/73
--- NOTE | 2017-09-15 08:28 | Discharge Summary ---
Discharge Summary - Discharge Sumary History of Present Illness: Aure has a history of chronic hyponatremia, which has been known to affect her mental status in the past. Her daughter found her on the floor in front of her chair, weak and confused. Aure presented to [facility] ER in a state of somnolence, but hemodynamically stable. Na was found to be 126. She was admitted started on oral fluid restriction and fludrocortisone. Additional Instructions: Discharge: to home. Diet: Diabetic. Meds: continue home meds and Fludricortisone 0.1mg daily. Activity: as tolerated. f/u: with Dr. Ferrell within a week Condition at Discharge: Stable Home Medications: Ambulatory Orders Medication Instructions Recorded Multivitamin [Tab-A-Norm] 1 each PO DAILY 11/18/14 Pramipexole Di-HCl [Mirapex] 0.25 mg PO BID 05/20/15 Ranitidine HCl [Zantac] 150 mg PO D 05/20/15 Folic Acid [FA-8] 0.8 mg PO D 12/17/15 Metformin HCl [Metformin HCl ER] 1,000 mg PO HS 10/20/16 Atorvastatin Calcium [Lipitor] 20 mg PO HS 06/17/17 Cyanocobalamin [Vitamin B-12] 1,000 mcg PO BID 06/17/17 Gabapentin [Neurontin] 300 mg PO HS 06/17/17 Fludrocortisone Acetate 0.1 mg PO QDAY 14 Days tablet 09/13/17 Consultations this Visit: None Procedures this Visit: None Allergies/Adverse Reactions: Allergies Allergy/AdvReac Type Severity Reaction Status Date / Time No Known Allergies Allergy Verified 09/11/17 20:21 Hospital Course: After being on oral fluid restriction overnight, IV NaCl, and fludrocortisone overnight she felt back to normal with a Na of 130. She was restarted on oral fluid and remained awake and alert with normal ambulation throughout the rest of her stay. Na on day of discharge, after almost 24 hours back on oral fluids was again 130. - Final Diagnosis (1) Altered mental status Problems: resolved (2) Anemia Problems: will check as OP, chronic anemia that decreased from 11.6 to 9.5 during her stay (3) Diabetes mellitus type 2 Problems: stable (4) Chronic obstructive pulmonary disease Problems: stable (5) Hyponatremia Problems: improved during hospital stay, will continue fludrocortisone at home and f/u with telegraph installer when possible
== END 2017-09-13 17:25 | disposition home or self-care (01) | DRG 191 ==
LOC: ED 19:43 → SOUTH 23:49
PROVIDERS: ADMIT Physician Assistant; ATTEND Physician Assistant
DX: J44.9 Chronic obstructive pulmonary disease, unspecified (principal); E87.1 Hypo-osmolality and hyponatremia; I50.9 Heart failure, unspecified; F17.210 Nicotine dependence, cigarettes, uncomplicated; E11.9 Type 2 diabetes mellitus without complications; E78.5 Hyperlipidemia, unspecified; R41.82 Altered mental status, unspecified; D64.9 Anemia, unspecified
CPT/HCPCS: 36415; 71010; 80048; 80053; 81002; 83605; 83690; 83880; 84484; 85025; 85027; 85610; 85730; 93005; J1650; J7030; J7060; J7626; 99222; 99238; 99283; 99284; 99291; S1016

== ENCOUNTER 2017-09-21 16:13 | Outpatient (CLI) | payer MEDICARE, OTHER ==
[2017-09-21 17:37] LABS: BASOPHILS % 0.8 (0.0-1.5); EOSINOPHILS % 4.4 % (0.0-6.8); MEAN CORPUSCULAR HEMOGLOBIN 28.6 pg (28.0-34.0); MEAN CORPUSCULAR VOLUME 93.7 fl (80.0-100.0); MONOCYTES % 6.1 % (0.0-11.0); NEUTROPHILS # 3.1 # k/uL (1.4-7.7)
[2017-09-21 18:08] LABS: eGFR (African) > 60; eGFR (Non-African) > 60
== END 2017-09-21 16:14 ==
LOC: LAB 16:13
PROVIDERS: ATTEND Family Medicine
DX: D50.9 Iron deficiency anemia, unspecified (principal); E11.9 Type 2 diabetes mellitus without complications; I10 Essential (primary) hypertension; E87.1 Hypo-osmolality and hyponatremia
CPT/HCPCS: 36415; 80053; 85025

== ENCOUNTER 2017-10-05 08:58 | Outpatient (CLI) | payer MEDICARE, OTHER ==
[2017-10-05 09:14] LABS: BASOPHILS % 1.1 (0.0-1.5); EOSINOPHILS % 5.2 % (0.0-6.8); MEAN CORPUSCULAR HEMOGLOBIN 29.2 pg (28.0-34.0); MEAN CORPUSCULAR VOLUME 89.4 fl (80.0-100.0); MONOCYTES % 5.1 % (0.0-11.0); NEUTROPHILS # 3.6 # k/uL (1.4-7.7)
[2017-10-05 09:42] LABS: eGFR (African) > 60; eGFR (Non-African) > 60
== END 2017-10-05 09:05 ==
LOC: LAB 08:58
PROVIDERS: ATTEND Family Medicine
DX: D64.9 Anemia, unspecified (principal); E87.1 Hypo-osmolality and hyponatremia; K85.00 Idiopathic acute pancreatitis without necrosis or infection
CPT/HCPCS: 36415; 80048; 83690; 85025

== ENCOUNTER 2017-11-02 07:14 | Outpatient (CLI) | payer MEDICARE, OTHER ==
[2017-11-02 08:23] LABS: BASOPHILS % 1.2 (0.0-1.5); EOSINOPHILS % 5.5 % (0.0-6.8); MEAN CORPUSCULAR HEMOGLOBIN 29.1 pg (28.0-34.0); MEAN CORPUSCULAR VOLUME 90.7 fl (80.0-100.0); MONOCYTES % 7.2 % (0.0-11.0); NEUTROPHILS # 3.1 # k/uL (1.4-7.7)
[2017-11-02 08:42] LABS: eGFR (African) > 60; eGFR (Non-African) 42
== END 2017-11-02 07:15 ==
LOC: LAB 07:14
PROVIDERS: ATTEND Family Medicine
DX: E87.1 Hypo-osmolality and hyponatremia (principal); D64.9 Anemia, unspecified
CPT/HCPCS: 36415; 80048; 85025

== ENCOUNTER 2017-11-10 14:13 | Outpatient (CLI) | payer MEDICARE, OTHER | END 2017-11-10 14:14 | LOC: POD 14:13 | PROVIDERS: ATTEND Podiatrist | DX: E11.42 Type 2 diabetes mellitus with diabetic polyneuropathy (principal); M20.41 Other hammer toe(s) (acquired), right foot; M20.42 Other hammer toe(s) (acquired), left foot; L84 Corns and callosities | CPT/HCPCS: G0463 ==

== ENCOUNTER 2017-11-11 09:36 | Outpatient (CLI) | payer MEDICARE, OTHER | END 2017-11-11 09:37 | LOC: LAB 09:36 | PROVIDERS: ATTEND Family Medicine | DX: K85.91 Acute pancreatitis with uninfected necrosis, unspecified (principal); E79.0 Hyperuricemia without signs of inflammatory arthritis and tophaceous disease; E11.9 Type 2 diabetes mellitus without complications | CPT/HCPCS: 36415; 82043; 83036; 83690; 84550 ==

== ENCOUNTER 2017-11-13 01:32 | Emergency (ER) | payer MEDICARE, OTHER ==
--- NOTE | 2017-11-13 02:27 | ED Physician Documentation ---
Fall - HISTORIAN Historian: patient, child - HPI Stated Complaint: Fall at home Chief Complaint: Fall Additional Information: pt in br over balanced fell hit occiput no loc now drowsi vs sleepy-answers appropriate but mu get her awake,. she c.o head neck kpain granddaughter lives w. her. nurses report she was coherent on arrival approx 30 min ago Onset: just prior to arrival, hours (fell approx 0100) Where: home Context: lost balance r: moderate Associated Symptoms:: no loss of consciousness Location of Pain/Injury: head, neck Injury to Right Extremity: none Injury to Left Extremity: none - ROS CONST: no problems, other (all chronic accd to g-daughter). denies: recent illness NEURO: dizziness MS/SKIN/LYMPH: weakness EYES/ENT: none CVS/RESP: none GI/: denies: nausea, vomiting - PAST HX Past History: cardiac disease, diabetes Type 1, COPD, other (htn renal failure chf ihd hyponatremia ch pancreatitis) Allergies/Adverse Reactions: Allergies Allergy/AdvReac Type Severity Reaction Status Date / Time No Known Allergies Allergy Verified 11/13/17 01:50 Home Medications: Ambulatory Orders Medication Instructions Recorded Multivitamin [Tab-A-Norm] 1 each PO DAILY 11/18/14 Pramipexole Di-HCl [Mirapex] 0.25 mg PO BID 05/20/15 Ranitidine HCl [Zantac] 150 mg PO D 05/20/15 Folic Acid [FA-8] 0.8 mg PO D 12/17/15 Metformin HCl [Metformin HCl ER] 1,000 mg PO HS 10/20/16 Atorvastatin Calcium [Lipitor] 20 mg PO HS 06/17/17 Cyanocobalamin [Vitamin B-12] 1,000 mcg PO BID 06/17/17 Gabapentin [Neurontin] 300 mg PO HS 06/17/17 - SOCIAL HX Smoking History: non-smoker, quit greater than 1 year Alcohol Use: none Drug Use: none - FAMILY HX Family History: no significant history - VITAL SIGNS Vital Signs: Vital Signs Temp Pulse Resp BP Pulse Ox 98.7 F 76 20 135/50 88 L 11/13/17 01:35 11/13/17 01:35 11/13/17 01:35 11/13/17 01:35 11/13/17 01:35 - REVIEWED ASSESSMENTS Nursing Assessment Reviewed: Yes Vitals Reviewed: Yes ED Results Lab/Radiology - Orders Orders: ED Orders Category Date Time Status CT BRAIN W/O CONTRAST Stat Exams 11/13/[address] C-SPINE W/O CONTRAST Stat Exams 11/13/17 Ordered CBC/PLATELET/DIFF Routine Lab 11/13/17 Ordered CMP Routine Lab 11/13/17 Ordered PT-INR Routine Lab 11/13/17 Ordered Fall Physical Exam - Physical Exam General Appearance: moderate distress (very hard to awaken - unsure if pt altered or just asleep) Head: no swelling. No: non-tender, no obvious injury, raccoon eyes Neck: No: non-tender, painless ROM Eye: ERIKA, EOMI ENT: nml external inspection, no dental injury Resp/CVS: chest non-tender, no ecchymosis, breath sounds nml, heart sounds nml Abdomen: soft, non-tender Neuro: oriented x3, sensation nml, motor nml, depressed mood/affect. No: mood/ affect nml Skin: color nml, no rash. No: cyanosis, diaphoresis, pallor Extremities: atraumatic, pelvis stable, hips non-tender Joint: joints nml, nml ROM, Nml gait/weight bearing. No: ligamentous instability - Motley Coma Score Eyes Open: To Voice (then difficult - altered vs just asleep) Motor: Localizes to Pain Discharge Clincal Impression: fall w/ contusion head neck Referrals: Royal Ferrell MD [Primary Care Provider] - 2 Days Condition: Good Disposition: HOME, SELF-CARE Decision to Admit: NO Decision Time: 03:31
[2017-11-13 02:37] LABS: BASOPHILS % 0.6 (0.0-1.5); EOSINOPHILS % 5.4 % (0.0-6.8); MEAN CORPUSCULAR HEMOGLOBIN 29.2 pg (28.0-34.0); MEAN CORPUSCULAR VOLUME 91.2 fl (80.0-100.0); MONOCYTES % 5.6 % (0.0-11.0); NEUTROPHILS # 4.6 # k/uL (1.4-7.7)
[2017-11-13 03:06] LABS: eGFR (African) > 60; eGFR (Non-African) > 60
--- NOTE | 2017-11-13 03:49 | Diagnostic Imaging Report ---
SHE MASON [facility] [address] [facility] [address] [place], [place]. [address] Report Submission Date: Nov 13, 2017 3:09:07 AM [employer]SEMBLER Patient Study Name: EFRAIN FINLEY Date: Nov 13, 2017 2:47:19 AM [employer] ASSEM[employer]ER Modality Type: CT\SR Gender: F Description: CT BRAIN W/O CONTRAST : 39 Institution: [facility] Physician: SHE MASON Head CT without contrast Clinical history: FELL, HIT HEAD, NO LOC (DICOM Hx) Technique: CT examination of the brain was performed in contiguous axial slices without the use of contrast. Findings: The 4th ventricle lies in a normal midline position. The ventricles and sulci are prominent secondary to atrophy. Chronic ischemic changes are present in the periventricular regions. Intracranial atherosclerosis is demonstrated. There is no hypodense or hyperdense mass or intracranial hemorrhage. Fluid is present in the maxillary sinuses bilaterally consistent with maxillary sinusitis. Impression: 1. Atrophy and chronic small vessel ischemic changes. 2. Maxillary sinusitis. Electronically signed on Nov 13, 2017 3:09:07 AM [employer] ASSEMBLER by: Naseem HUMMEL
--- NOTE | 2017-11-13 03:50 | Diagnostic Imaging Report ---
SHE MASON [facility] [address] [facility] [address] [place] [address]. [id number] Report Submission Date: Nov 13, 2017 3:02:12 AM SENIOR RISK MANAGER Patient Study Name: EFRAIN FINLEY Date: Nov 13, 2017 2:49:47 AM SENIOR RISK MANAGER Modality Type: CT\SR Gender: F Description: CT C-SPINE W/O CONTRAS : 39 Institution: [facility] Physician: SHE MASON CT of the cervical spine Clinical history: NECK PAIN (DICOM Hx) Technique: CT of the cervical spine was performed in contiguous axial slices with sagittal and coronal reconstructions. Findings: The alignment of the vertebrae is anatomic. There are postoperative changes status post fusion of C5 through C7 with anterior plate secured by screws into the vertebrae. Bone plugs overlie the intervening disc spaces. The C1/C2 articulation is normal and the base of the odontoid is intact. Posterior osteophytes and degenerative facet changes narrow the neural foramina C3/C4 on the left and C5/C6 on the right. There is no evident fracture. Impression: 1. Spondylosis. 2. Postoperative fusion C5 through C7. 3. No fracture. Electronically signed on Nov 13, 2017 3:02:12 AM SENIOR RISK MANAGER by: Naseem HUMMEL
[2017-11-13 03:51] VITALS: BP 145/74
== END 2017-11-13 03:35 | disposition home or self-care (01) ==
LOC: ED 01:32
DX: S00.93XA Contusion of unspecified part of head, initial encounter (principal); S10.93XA Contusion of unspecified part of neck, initial encounter; W19.XXXA Unspecified fall, initial encounter
CPT/HCPCS: 70450; 72125; 80053; 85025; 85610; 99283

== ENCOUNTER 2017-11-18 05:44 | Emergency (ER) | payer MEDICARE, OTHER ==
--- NOTE | 2017-11-18 05:50 | ED Physician Documentation ---
Fall - HISTORIAN Historian: patient - HPI Stated Complaint: fall Chief Complaint: Fall Onset: just prior to arrival Where: home Context: other (She is not sure how it happened she reports ) r: mild Associated Symptoms:: no loss of consciousness Location of Pain/Injury: head, lower back Injury to Right Extremity: none Injury to Left Extremity: none Further Comments: yes (She states she went to the bathroom and she just fell. She denies any loss of conciousness. She now complains of low back pain and head pain) - ROS CONST: no problems NEURO: denies: dizziness - PAST HX Past History: other Immunizations: referred to PCP - SOCIAL HX Smoking History: non-smoker Alcohol Use: none Drug Use: none - FAMILY HX Family History: none - VITAL SIGNS Vital Signs: Vital Signs Temp Pulse Resp BP Pulse Ox 145/74 11/13/17 03:35 - REVIEWED ASSESSMENTS Nursing Assessment Reviewed: Yes Vitals Reviewed: Yes <Rand Shane - Last Filed: 11/18/17 07:04> - VITAL SIGNS Vital Signs: Vital Signs Temp Pulse Resp BP Pulse Ox 97.1 F L 69 18 162/56 90 L 11/18/17 05:45 11/18/17 05:45 11/18/17 05:45 11/18/17 05:45 11/18/17 05:45 <Jad Eduardo - Last Filed: 11/18/17 08:11> - PAST HX Allergies/Adverse Reactions: Allergies Allergy/AdvReac Type Severity Reaction Status Date / Time No Known Allergies Allergy Verified 11/13/17 01:50 Home Medications: Ambulatory Orders Medication Instructions Recorded Multivitamin [Tab-A-Norm] 1 each PO DAILY 11/18/14 Pramipexole Di-HCl [Mirapex] 0.25 mg PO BID 05/20/15 Ranitidine HCl [Zantac] 150 mg PO D 05/20/15 Folic Acid [FA-8] 0.8 mg PO D 12/17/15 Metformin HCl [Metformin HCl ER] 1,000 mg PO HS 10/20/16 Atorvastatin Calcium [Lipitor] 20 mg PO HS 06/17/17 Cyanocobalamin [Vitamin B-12] 1,000 mcg PO BID 06/17/17 Gabapentin [Neurontin] 300 mg PO TID 08/23/17 Progress - Progress Progress: 0655: Pt is resting quietly in bed. Daughter at bedside. Daughter is concerned about new mental status changes. They did see Neurology yesterday and he believes this is due to her CPAP. Daughter is frustrated with how to care for pt. DG <Rand Shane - Last Filed: 11/18/17 07:04> ED Results Lab/Radiology - Radiology Radiology Impressions: CT head History: PT FELL THIS MORNING WALKING TO RESTROOM; PT IS CURRENTLY UNCONSCIOUS; NO HX OF FX OR SURGERY Multiple axial images of the brain are submitted with reconstructions Comparison: November 13, 2017 No evidence of acute intracranial hemorrhage. No midline shift. 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 Band of increased density across the lower grazyna and cerebellum causes artifact. Again noted is partial opacification of both maxillary sinuses. No skull fracture Impression: 1. No evidence of acute intracranial hemorrhage. No midline shift 2. 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 Maxillary sinusitis. Electronically signed on Nov 18, 2017 6:48:32 AM CITY CARRIER by: Love Mckeon 5 views of the lumbar spine History: PT FELL THIS MORNING WALKING TO THE RESTROOM; HX OF SPINAL SURGERY AND SPINAL STIMULATOR PLACEMENT; PT IS CURRENTLY UNCONSCIOUS; OTHER HX UNKNOWN No comparison studies are available at the time of dictation, study dated September 24, 2016 not available Spinal stimulator is noted in the left midabdomen. Anterior lumbar fusion is noted from L4 to S1. L5 significantly demineralized. There is grade I-II anterolisthesis of L4 - L5. Posterior facet arthropathy is noted in the lower lumbar spine. Multilevel extensive degenerative changes are present. Posterior screws are noted at L5- S1. Patient is post left hip arthroplasty. Intact hardware. Degenerative changes are noted throughout the lumbar spine. Mild widening of the pubic symphysis Impression: 1. Post lumbar fusion L4 to S1. Grade I-II anterolisthesis of L4- L5. Extensive multilevel degenerative changes. No obvious acute fracture fragment is identified. 2. Mild widening of the pubic symphysis. Consider followup as needed. Electronically signed on Nov 18, 2017 7:03:24 AM CITY CARRIER by: Love Mckeon <Rand Shane - Last Filed: 11/18/17 07:04> - Lab Results Lab Results: Lab Results 11/18/17 11/18/17 07:30 07:30 WBC 6.40 K/ul K/ul (4.00-12.00) RBC 4.12 M/ul M/ul (3.90-5.20) Hgb 12.0 g/dL g/dL (12.0-16.0) Hct 36.9 % % (34.5-46.5) MCV 89.7 fl fl (80.0-100.0) MCH 29.1 pg pg (28.0-34.0) MCHC 32.4 g/dL g/dL (30.0-36.0) RDW 15.0 % H % (11.3-14.3) Plt Count 367 K/mm3 K/mm3 (130-400) Neut % (Auto) 63.7 % % (39.0-79.0) Lymph % (Auto) 23.2 % % (16.0-50.0) [place] % (Auto) 5.5 % % (0.0-11.0) Eos % (Auto) 4.3 % % (0.0-6.8) Baso % (Auto) 1.1 (0.0-1.5) Neut # (Auto) 4.0 # k/uL # k/uL (1.4-7.7) Lymph # (Auto) 1.5 # k/uL # k/uL (0.6-4.0) [place] # (Auto) 0.4 # k/uL # k/uL (0.0-0.9) Eos # (Auto) 0.3 # k/uL # k/uL (0.0-0.6) Baso # (Auto) 0.1 # k/uL # k/uL (0.0-0.5) Reactive Lymphs % 2.2 % % (0.0-5.0) Reactive Lymphs # 0.1 # k/uL # k/uL (0.0-0.8) Sodium 142 mmol/L mmol/L (136-145) Potassium 3.6 mmol/L mmol/L (3.5-5.1) Chloride 99 mmol/L mmol/L (98-107) Carbon Dioxide 29 mmol/L mmol/L (22-30) BUN 18 mg/dL H mg/dL (7-17) Creatinine 1.10 mg/dL H mg/dL (0.52-1.04) Estimated Creat Clear 51 Est GFR ( Amer) > 60 (60 - ) Est GFR (Non-Af Amer) > 60 (60 - ) Glucose 162 mg/dL H mg/dL (74-106) Calcium 9.1 mg/dL mg/dL (8.4-10.2) Total Bilirubin 0.4 mg/dL mg/dL (0.2-1.3) AST 21 U/L U/L (15-46) ALT 29 U/L U/L (13-69) Alkaline Phosphatase 93 U/L U/L (38-126) Total Protein 6.8 g/dL g/dL (6.3-8.2) Albumin 3.9 g/dL g/dL (3.5-5.0) - Orders Orders: ED Orders Category Date Time Status Place IV Lock 1T Care 11/18/17 06:[address] BRAIN W/O CONTRAST Stat Exams 11/18/17 Completed LUMBAR SPINE WITH OBLIQUES [L SPINE 4 VIEWS] [RAD] Stat Exams 11/18/17 Completed CBC/PLATELET/DIFF Stat Lab 11/18/17 07:30 Completed CMP Stat Lab 11/18/17 07:30 Completed <Jad Eduardo - Last Filed: 11/18/17 08:11> Fall Physical Exam - Physical Exam General Appearance: no acute distress, alert Head: non-tender (raised area on left scalp ) Neck: non-tender Eye: ERIKA Resp/CVS: chest non-tender, breath sounds nml, no resp. distress, heart sounds nml Abdomen: soft Neuro: oriented x3, CN's nml as tested, sensation nml, motor nml, mood/affect nml, beater worker helper nml, reflexes nml, beater worker helper symmetrical Skin: color nml, no rash Back: normal inspection, other (pain with palpation mid lumbar region ) Extremities: atraumatic Joint: joints nml, nml ROM, Nml gait/weight bearing - [place] Coma Score Eyes Open: Spontaneous Speech: Oriented Motor: Obeys Commands <Rand Shane - Last Filed: 11/18/17 07:04> Discharge <Rand Shane - Last Filed: 11/18/17 07:04> Decision to Admit: NO Decision Time: 08:09 <Jad Eduardo - Last Filed: 11/18/17 08:11> Clincal Impression: fall Referrals: Royal Ferrell MD [Primary Care Provider] - Condition: Stable Disposition: 01 HOME, SELF-CARE
--- NOTE | 2017-11-18 07:02 | Diagnostic Imaging Report ---
MELANIE NIEVES~ [facility] [address] [facility] [address] [place], [place]. [address] ~ ~ ~ ~ Report Submission Date: Nov 18, 2017 6:48:32 AM CLIENT APPLICATION SUPPORT ENGINEER Patient ~ Study Name: EFRAIN FINLEY ~ Date: Nov 18, 2017 6:05:07 AM CLIENT APPLICATION SUPPORT ENGINEER ~ Modality Type: CT\SR Gender: F ~ Description: CT BRAIN W/O CONTRAST : 37 ~ Institution: [facility] Physician: MELANIE NIEVES ~ ~ ~ CT head History: PT FELL THIS MORNING WALKING TO RESTROOM; PT IS CURRENTLY UNCONSCIOUS; NO HX OF FX OR SURGERY Multiple axial images of the brain are submitted with reconstructions Comparison: November 13, 2017 No evidence of acute intracranial hemorrhage. No midline shift. 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 Band of increased density across the lower grazyna and cerebellum causes artifact. Again noted is partial opacification of both maxillary sinuses. ~No skull fracture Impression: 1. No evidence of acute intracranial hemorrhage. No midline shift 2. 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 Maxillary sinusitis. ~ Electronically signed on Nov 18, 2017 6:48:32 AM CLIENT APPLICATION SUPPORT ENGINEER by: Love HUMMEL
--- NOTE | 2017-11-18 07:04 | Diagnostic Imaging Report ---
MELANIE NIEVES~ [facility] [address] [facility] [address] [place], [place]. [address] ~ ~ ~ ~ Report Submission Date: Nov 18, 2017 7:03:24 AM BINDING CUTTER SYNTHETIC CLOTH Patient ~ Study Name: EFRAIN FINLEY ~ Date: Nov 18, 2017 6:25:42 AM BINDING CUTTER SYNTHETIC CLOTH ~ Modality Type: CR Gender: F ~ Description: SPINE : 37 ~ Institution: [facility] Physician: MELANIE NIEVES ~ ~ ~ 5 views of the lumbar spine History: PT FELL THIS MORNING WALKING TO THE RESTROOM; HX OF SPINAL SURGERY AND SPINAL STIMULATOR PLACEMENT; PT IS CURRENTLY UNCONSCIOUS; OTHER HX UNKNOWN No comparison studies are available at the time of dictation, study dated September 24, 2016 not available Spinal stimulator is noted in the left midabdomen. Anterior lumbar fusion is noted from L4 to S1. L5 significantly demineralized. There is grade I-II anterolisthesis of L4 - L5. Posterior facet arthropathy is noted in the lower lumbar spine. Multilevel extensive degenerative changes are present. Posterior screws are noted at L5- S1. Patient is post left hip arthroplasty. Intact hardware. Degenerative changes are noted throughout the lumbar spine. Mild widening of the pubic symphysis Impression: 1. Post lumbar fusion L4 to S1. Grade I-II anterolisthesis of L4- L5. Extensive multilevel degenerative changes. No obvious acute fracture fragment is identified. 2. Mild widening of the pubic symphysis. Consider followup as needed. ~ Electronically signed on Nov 18, 2017 7:03:24 AM BINDING CUTTER SYNTHETIC CLOTH by: Love HUMMEL
[2017-11-18 07:45] LABS: BASOPHILS % 1.1 (0.0-1.5); EOSINOPHILS % 4.3 % (0.0-6.8); MEAN CORPUSCULAR HEMOGLOBIN 29.1 pg (28.0-34.0); MEAN CORPUSCULAR VOLUME 89.7 fl (80.0-100.0); MONOCYTES % 5.5 % (0.0-11.0)
[2017-11-18 07:54] LABS: eGFR (African) > 60; eGFR (Non-African) > 60
[2017-11-18 09:30] VITALS: BP 142/55
== END 2017-11-18 09:20 | disposition home or self-care (01) ==
LOC: ED 05:44
DX: T14.90XA Injury, unspecified, initial encounter (principal); W19.XXXA Unspecified fall, initial encounter
CPT/HCPCS: 36415; 70450; 72110; 80053; 85025; 99283; S1016

== ENCOUNTER 2017-11-20 23:50 | Emergency (ER) | payer MEDICARE, OTHER ==
--- NOTE | 2017-11-21 00:39 | Diagnostic Imaging Report ---
MARLY GEIGER (SUE) - AMBER [facility] [address] [facility] [address] [place] [address]. [id number] Report Submission Date: Nov 21, 2017 12:37:50 AM APPRENTICE PHOTOGRAPHER Patient Study Name: EFRAIN FINLEY Date: Nov 21, 2017 12:18:04 AM APPRENTICE PHOTOGRAPHER Modality Type: CT\SR Gender: F Description: CT BRAIN W/O CONTRAST : 37 Institution: [facility] Physician: MARLY GEIGER) - AMBER Head CT without contrast Clinical history: FALL Technique: CT examination of the brain was performed in contiguous axial slices without the use of contrast. Sagittal and coronal reconstructions are performed by the technologist. Comparison is made to a prior study dated November 18, 2017. Findings: The 4th ventricle lies in a normal midline position. The ventricles and sulci are prominent secondary to atrophy. There has been no interval development of hypodense or hyperdense mass or midline shift. Intracranial atherosclerosis is demonstrated. Mucosal thickening present in the maxillary sinuses. Mastoid air cells are clear. Impression: 1. Atrophy and chronic small vessel ischemic changes. 2. Intracranial atherosclerosis. 3. Chronic paranasal sinus changes. 4. No significant change. Electronically signed on Nov 21, 2017 12:37:50 AM APPRENTICE PHOTOGRAPHER by: Naseem HUMMEL
--- NOTE | 2017-11-21 00:53 | ED Physician Documentation ---
Fall - HISTORIAN Historian: patient, other (family) - HPI Stated Complaint: fall, head injury Chief Complaint: Fall Associated Symptoms:: no loss of consciousness Location of Pain/Injury: head Injury to Right Extremity: none Injury to Left Extremity: none Further Comments: yes (82 year old female patient present after a fall from standing. Struck head on floor, witnessed by grandson, no LOC.) - ROS CONST: other (frequent falls - saw Dr Ferrell last week for work up ) NEURO: denies: dizziness MS/SKIN/LYMPH: back pain (chronic). denies: neck pain, ankle swelling, leg swelling EYES/ENT: none CVS/RESP: none GI/: denies: problems urinating, nausea, vomiting - PAST HX Past History: cardiac disease, AMI, diabetes Type 2 Allergies/Adverse Reactions: Allergies Allergy/AdvReac Type Severity Reaction Status Date / Time No Known Allergies Allergy Verified 11/21/17 00:11 Home Medications: Ambulatory Orders Medication Instructions Recorded Multivitamin [Tab-A-Norm] 1 each PO DAILY 11/18/14 Pramipexole Di-HCl [Mirapex] 0.25 mg PO BID 05/20/15 Ranitidine HCl [Zantac] 150 mg PO D 05/20/15 Folic Acid [FA-8] 0.8 mg PO D 12/17/15 Metformin HCl [Metformin HCl ER] 1,000 mg PO HS 10/20/16 Atorvastatin Calcium [Lipitor] 20 mg PO HS 06/17/17 Cyanocobalamin [Vitamin B-12] 1,000 mcg PO BID 06/17/17 Gabapentin [Neurontin] 300 mg PO TID 06/17/17 - SOCIAL HX Smoking History: non-smoker - FAMILY HX Family History: denies: none - VITAL SIGNS Vital Signs: Vital Signs Temp Pulse Resp BP Pulse Ox 69 18 150/54 96 11/20/17 23:50 11/20/17 23:50 11/20/17 23:50 11/20/17 23:50 - REVIEWED ASSESSMENTS Nursing Assessment Reviewed: Yes Vitals Reviewed: Yes Progress - Progress Progress: 2 cm area of edema noted over occipital area. ED Results Lab/Radiology - Radiology Radiology Impressions: Head CT without contrast Clinical history: FALL Technique: CT examination of the brain was performed in contiguous axial slices without the use of contrast. Sagittal and coronal reconstructions are performed by the technologist. Comparison is made to a prior study dated November 18, 2017. Findings: The 4th ventricle lies in a normal midline position. The ventricles and sulci are prominent secondary to atrophy. There has been no interval development of hypodense or hyperdense mass or midline shift. Intracranial atherosclerosis is demonstrated. Mucosal thickening present in the maxillary sinuses. Mastoid air cells are clear. Impression: 1. Atrophy and chronic small vessel ischemic changes. 2. Intracranial atherosclerosis. 3. Chronic paranasal sinus changes. 4. No significant change. Electronically signed on Nov 21, 2017 12:37:50 AM HEDIS COORDINATOR by: Naseem Greenwood - Orders Orders: ED Orders Category Date Time Status CT BRAIN W/O CONTRAST Stat Exams 11/21/17 Completed Fall Physical Exam - Physical Exam General Appearance: mild distress Neck: non-tender, painless ROM, trachea midline Eye: ERIKA Resp/CVS: chest non-tender, no ecchymosis, breath sounds nml, no resp. distress , heart sounds nml Abdomen: soft, no organomegaly, normal bowel sounds, no abdominal bruit, no distension Neuro: oriented x3, CN's nml as tested, sensation nml, motor nml, mood/affect nml, rn outpatient surgery nml, reflexes nml, rn outpatient surgery symmetrical Skin: color nml, no rash, nml palp., dry Back: normal inspection, no CVA tenderness Extremities: atraumatic, pelvis stable, hips non-tender, no pedal edema, nml ROM , nml color/temp Joint: joints nml, nml ROM, Nml gait/weight bearing - [place] Coma Score Eyes Open: Spontaneous Speech: Oriented Motor: Obeys Commands Discharge Clincal Impression: Fall Qualifiers: Encounter type: initial encounter Qualified Code(s): W19.XXXA - Unspecified fall, initial encounter Additional Instructions: Use your cane and walker at all times for through the weekend. Follow up with Dr Ferrell next week for reevaluation. Condition: Stable Disposition: 01 HOME, SELF-CARE Decision to Admit: NO Decision Time: 00:58
[2017-11-21 02:00] VITALS: BP 150/92
[2017-11-21 07:21] LABS: APPEARANCE,URINE CLEAR (CLEAR); COLOR,URINE YELLOW (YELLOW); OCCULT BLOOD,URINE NEGATIVE (NEGATIVE); UROBILINOGEN URINE 0.2 Eu (0.2-1.0)
== END 2017-11-21 01:00 | disposition home or self-care (01) ==
LOC: ED 23:50
DX: S09.90XA Unspecified injury of head, initial encounter (principal); W18.39XA Other fall on same level, initial encounter; Y93.9 Activity, unspecified; Y92.89 Other specified places as the place of occurrence of the external cause
CPT/HCPCS: 70450; 81002; 99283

== ENCOUNTER 2017-12-19 01:16 | Emergency (ER) | payer MEDICARE, OTHER ==
--- NOTE | 2017-12-19 01:52 | ED Physician Documentation ---
Fall - HISTORIAN Historian: patient, other (daughter) - HPI Stated Complaint: fall Chief Complaint: Fall Onset: today Where: home Context: tripped r: mild Associated Symptoms:: no loss of consciousness Location of Pain/Injury: L shoulder, hip (left) Injury to Right Extremity: none Injury to Left Extremity: shoulder, hip Further Comments: yes (82 year old female patient brought in via EMS for evaluation after a fall in bathroom. Patient c/o left shoulder and left hip pain. Daughter at bedside. Will not allow RN to assess patient, start IV or begin treatments. Multiple negative comments made by daughter about RN. Daughter demanding another nurse. Explained RN was more than capable of starting treatments and completing orders. Encouraged daughter not to delay patinet's care.Daughter demanding no xray of shoulder "it needs something more" . Explained we would start with xray and progress if necessary. Daughter requesting MRI - shoulder replacement.) - ROS CONST: no problems NEURO: anxiety MS/SKIN/LYMPH: denies: neck pain, back pain EYES/ENT: none CVS/RESP: none GI/: denies: nausea, vomiting - PAST HX Past History: diabetes Type 2, other (neuropathy, HTN, HLD) Allergies/Adverse Reactions: Allergies Allergy/AdvReac Type Severity Reaction Status Date / Time No Known Allergies Allergy Verified 11/21/17 00:11 Home Medications: Ambulatory Orders Medication Instructions Recorded Multivitamin [Tab-A-Norm] 1 each PO DAILY 11/18/14 Ranitidine HCl [Zantac] 150 mg PO D 05/20/15 Folic Acid [FA-8] 0.8 mg PO D 12/17/15 Metformin HCl [Metformin HCl ER] 1,000 mg PO HS 10/20/16 Atorvastatin Calcium [Lipitor] 20 mg PO HS 06/17/17 Cyanocobalamin [Vitamin B-12] 1,000 mcg PO BID 06/17/17 Gabapentin [Neurontin] 300 mg PO BID 06/17/17 Gabapentin [Neurontin] 600 mg PO HS 12/19/17 Ketorolac Tromethamine [Toradol] 10 mg PO TID #15 tablet 12/19/17 - SOCIAL HX Smoking History: non-smoker - FAMILY HX Family History: denies: none - VITAL SIGNS Vital Signs: Vital Signs Temp Pulse Resp BP Pulse Ox 97.9 F 66 18 155/52 95 12/19/17 01:16 02/24/18 01:16 12/19/17 01:16 12/19/17 01:16 12/19/17 01:16 - REVIEWED ASSESSMENTS Nursing Assessment Reviewed: Yes Vitals Reviewed: Yes Progress - Progress Progress: Patient seen in ER in October for fall; history of frequent falls noted 0330 Assisted patient with sitting up; reassessed. Reviewed lab and xray results with patient and daughter. Medicated for pain with toradol IV. Patient extremely sleepy. Assisted to wheel chair for discharge Reviewed discharge instructions. ED Results Lab/Radiology - Radiology Radiology Impressions: 3 Views of the left shoulder Clinical history: Fall 4 days ago. Pain. Findings: Examination of left shoulder multiple views demonstrates left humeral prosthesis. There is no evident fracture and no lytic or blastic lesion. Impression: 1. Left humeral prosthesis. 2. No fracture. Electronically signed on Dec 19, 2017 2:54:47 AM FURNACE OPERATOR by: Naseem Greenwood 2 views of the left hip Clinical history: Fall 4 days ago. Pain. Findings: Examination of the left hip in AP and frog leg lateral views demonstrates a left total hip replacement. Prosthetic components are normally seated in the [place] bony structures. There is no evident fracture and no lytic or blastic lesion. Vascular calcification is incidentally noted. Impression: 1. Left total hip replacement. 2. No fracture. Electronically signed on Dec 19, 2017 2:55:44 AM FURNACE OPERATOR by: Naseem Greenwood - Orders Orders: ED Orders Category Date Time Status Place IV Lock 1T Care 12/19/17 01:32 Active LT HIP 2VIEW COMPLETE [RAD] Urgent Exams 12/19/17 01:32 Ordered SHOULDER 2 VIEWS OR MORE [RAD] Stat Exams 12/19/17 01:32 Ordered CBC/PLATELET/DIFF Routine Lab 12/19/17 01:31 Ordered CMP Routine Lab 12/19/17 01:31 Ordered URINALYSIS Routine Lab 12/19/17 01:31 Ordered Fall Physical Exam - Physical Exam General Appearance: no acute distress, alert Head: non-tender, no swelling, no obvious injury Neck: non-tender, painless ROM, trachea midline Eye: ERIKA Resp/CVS: chest non-tender, no ecchymosis, breath sounds nml, no resp. distress , heart sounds nml Abdomen: soft, no organomegaly, normal bowel sounds, no abdominal bruit, no distension Neuro: oriented x3, CN's nml as tested, sensation nml, motor nml, mood/affect nml, stadium manager nml, reflexes nml, stadium manager symmetrical Skin: color nml, no rash, nml palp., dry Back: normal inspection, no CVA tenderness Extremities: atraumatic, pelvis stable, hips non-tender, no pedal edema, nml ROM , nml color/temp, other (left hip with no ecchymosis or abrasion; left shoulder with obvious injury, no ecchymosis or abrasion. Healed incision noted. ) - [place] Coma Score Eyes Open: Spontaneous Speech: Oriented Motor: Obeys Commands Discharge Clincal Impression: Difficulty with family Fall Qualifiers: Encounter type: initial encounter Qualified Code(s): W19.XXXA - Unspecified fall, initial encounter Contusion of shoulder Qualifiers: Encounter type: initial encounter Laterality: left Qualified Code(s): S40.012A - Contusion of left shoulder, initial encounter Prescriptions: Ketorolac Tromethamine [Toradol] 10 mg PO TID #15 tablet Referrals: Royal Ferrell MD [Primary Care Provider] - 2 Days Condition: Stable Disposition: 01 HOME, SELF-CARE Decision to Admit: NO Decision Time: 03:27
[2017-12-19 02:25] LABS: eGFR (African) > 60; eGFR (Non-African) > 60
[2017-12-19 02:27] LABS: BASOPHILS % 0.8 (0.0-1.5); EOSINOPHILS % 6.4 % (0.0-6.8); MEAN CORPUSCULAR HEMOGLOBIN 28.8 pg (28.0-34.0); MEAN CORPUSCULAR VOLUME 91.3 fl (80.0-100.0); MONOCYTES % 7.4 % (0.0-11.0); NEUTROPHILS # 2.4 # k/uL (1.4-7.7)
[2017-12-19] MEDS ORDERED: KETOROLAC TROMETHAMINE 30 MG/1ML VIAL IVP ONE (03:28)
--- NOTE | 2017-12-19 03:59 | Diagnostic Imaging Report ---
MARLY LOVETT (WEBMETHODS ARCHITECT) - ER [facility] [address] [facility] [address] Report Submission Date: Dec 19, 2017 2:54:47 AM WIND TURBINE ELECTRICAL ENGINEER Patient Study Name: EFRAIN FINLEY Date: Dec 19, 2017 2:06:22 AM WIND TURBINE ELECTRICAL ENGINEER Modality Type: DX Gender: F Description: SHOULDER : 37 Institution: [facility] Physician: MARLY LOVETT (WEBMETHODS ARCHITECT) - ER 3 Views of the left shoulder Clinical history: Fall 4 days ago. Pain. Findings: Examination of left shoulder multiple views demonstrates left humeral prosthesis. There is no evident fracture and no lytic or blastic lesion. Impression: 1. Left humeral prosthesis. 2. No fracture. Electronically signed on Dec 19, 2017 2:54:47 AM WIND TURBINE ELECTRICAL ENGINEER by: Naseem HUMMEL
--- NOTE | 2017-12-19 04:00 | Diagnostic Imaging Report ---
MARLY LOVETT (AUTOMOTIVE FUEL INJECTION SERVICER) - ER [facility] [address] [address] Report Submission Date: Dec 19, 2017 2:55:44 AM ANAESTHESIOLOGIST Patient Study Name: EFRAIN FINLEY Date: Dec 19, 2017 2:15:28 AM ANAESTHESIOLOGIST Modality Type: DX Gender: F Description: PELVIS : 37 Institution: [facility] Physician: MARLY LOVETT (AUTOMOTIVE FUEL INJECTION SERVICER) - ER 2 views of the left hip Clinical history: Fall 4 days ago. Pain. Findings: Examination of the left hip in AP and frog leg lateral views demonstrates a left total hip replacement. Prosthetic components are normally seated in the [place] bony structures. There is no evident fracture and no lytic or blastic lesion. Vascular calcification is incidentally noted. Impression: 1. Left total hip replacement. 2. No fracture. Electronically signed on Dec 19, 2017 2:55:44 AM ANAESTHESIOLOGIST by: Naseem HUMMEL
[2017-12-19 05:05] VITALS: BP 128/48
[2017-12-19 06:59] LABS: APPEARANCE,URINE CLEAR (CLEAR); COLOR,URINE YELLOW (YELLOW); OCCULT BLOOD,URINE TRACE-INTACT (NEGATIVE); UROBILINOGEN URINE 0.2 Eu (0.2-1.0)
== END 2017-12-19 03:45 | disposition home or self-care (01) ==
LOC: ED 01:16
DX: S40.012A Contusion of left shoulder, initial encounter (principal); W19.XXXA Unspecified fall, initial encounter; Y92.9 Unspecified place or not applicable; Y93.9 Activity, unspecified
CPT/HCPCS: 73030; 73502; 80053; 81002; 85025; J1885; 96374; 99283; S1016

== ENCOUNTER 2017-12-30 20:42 | Inpatient (IN) | payer MEDICARE, OTHER ==
[2017-12-30] MEDS ORDERED: IPRATROPIUM/ALBUTEROL SULFATE 3 ML AMPUL.NEB NEB ONE (21:07)
--- NOTE | 2017-12-30 21:10 | ED Physician Documentation ---
Dyspnea - HISTORIAN Historian: patient - HPI Stated Complaint: Shortness of air Chief Complaint: Dyspnea Additional Information: noncompliant patient, respiratory history, here often, brought by nurse daughter who says she is worse today. They have appt in AM with PCP. Deanna says she's had all her breathing treatments today. Onset: hours Duration: continues in ED Severity: mild Exacerbated By: change in position, exertion Associated Symptoms: none Further Comments: no - ROS CONST: no problems EYES/ENT: none GI/: none MS/SKIN/LYMPH: none - PAST HX Lung Disease: asthma, COPD Cardiac Disease: none PE Risk Factors: none Surgeries/Procedures: none Other History: none Allergies/Adverse Reactions: Allergies Allergy/AdvReac Type Severity Reaction Status Date / Time No Known Allergies Allergy Verified 12/30/17 20:54 Home Medications: Ambulatory Orders Medication Instructions Recorded Multivitamin [Tab-A-Norm] 1 each PO DAILY 11/18/14 Ranitidine HCl [Zantac] 150 mg PO D 05/20/15 Folic Acid [FA-8] 0.8 mg PO D 12/17/15 Metformin HCl [Metformin HCl ER] 1,000 mg PO HS 10/20/16 Atorvastatin Calcium [Lipitor] 20 mg PO HS 06/17/17 Cyanocobalamin [Vitamin B-12] 1,000 mcg PO BID 06/17/17 Gabapentin [Neurontin] 300 mg PO BID 06/17/17 Gabapentin [Neurontin] 600 mg PO HS 12/19/17 Ketorolac Tromethamine [Toradol] 10 mg PO TID #15 tablet 12/19/17 - SOCIAL HX Smoking History: cigarettes Alcohol Use: none Drug Use: none - FAMILY HX Family History: none - VITAL SIGNS Vital Signs: Vital Signs Temp Pulse Resp BP Pulse Ox 98.2 F 88 24 122/33 88 L 12/30/17 20:42 12/30/17 20:42 12/30/17 20:42 12/30/17 20:42 12/30/17 20:42 - REVIEWED ASSESSMENTS Nursing Assessment Reviewed: Yes Vitals Reviewed: Yes ED Results Lab/Radiology - Orders Orders: ED Orders Category Date Time Status Assess pulse oximetry Q1H Care 12/30/17 21:07 Ordered CHEST 1VIEW [RAD] Stat Exams 12/30/17 Ordered ARTERIAL BLOOD GAS Stat Lab 12/30/17 Uncollected CBC/PLATELET/DIFF Routine Lab 12/30/17 Ordered CMP Routine Lab 12/30/17 Ordered Ipratropium/Albuterol Sulfate [Duoneb] Med 12/30/17 21:07 Once 3 ml NEB NOW ONE Oxygen Daily Oxygen 12/30/17 21:15 Ordered EKG WITH COMPARISON Stat Ther 12/30/17 Ordered Dyspnea Physical Exam - EXAM General Appearance: no acute distress, alert EENT: eye inspection normal, ENT inspection normal, pharynx normal, no signs of dehydration Neck: nml inspection Respiratory: no resp. distress, speaks full sentences, wheezes CVS: reg. rate & rhythm Abdomen: non-tender Skin: color nml, no rash Extremities: non-tender, normal range of motion Neuro/Psych: oriented x3 Discharge Clincal Impression: Hyperglycemia, Hyponatremia, Renal insufficiency, mild, Uremia, Hypoxemia, Non- compliant behavior, Difficulty with family Sleep apnea Qualifiers: Sleep apnea type: unspecified type Qualified Code(s): G47.30 - Sleep apnea, unspecified Obesity Qualifiers: Obesity type: unspecified obesity type Obesity classification: unspecified obesity classification Serious obesity comorbidity presence: with serious comorbidity Qualified Code(s): E66.9 - Obesity, unspecified Anemia Qualifiers: Anemia type: unspecified type Qualified Code(s): D64.9 - Anemia, unspecified Referrals: Royal Ferrell MD [Primary Care Provider] - 2 Days Condition: Stable Disposition: ADMITTED INPATIENT Decision to Admit: [id number] Date of Decison to Admit: 12/30/17 Decision Time: 23:02
[2017-12-30 22:50] LABS: eGFR (African) > 60; eGFR (Non-African) > 60
[2017-12-30] MEDS ORDERED: IPRATROPIUM/ALBUTEROL SULFATE 3 ML AMPUL.NEB NEB PRN (23:02)
[2017-12-31 00:36] VITALS: BMI 29.2
--- NOTE | 2017-12-31 03:10 | Diagnostic Imaging Report ---
MATTHEW CUTLER [facility] [address] [facility] [address] 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 The pulmonary vasculature is normal. No pleural effusion, pneumothorax or alveolar consolidation. 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
[2017-12-31] MEDS ORDERED: IPRATROPIUM/ALBUTEROL SULFATE 3 ML AMPUL.NEB NEB PRN (08:19)
[2017-12-31] MEDS: GABAPENTIN 300 MG CAPSULE PO SCH ×3 (09:13→20:14)
[2017-12-31] MEDS: FLUDROCORTISONE ACETATE 0.1 MG TABLET PO SCH (09:13)
[2017-12-31] MEDS: LISINOPRIL 20 MG TABLET PO SCH (09:13)
[2017-12-31] MEDS: CYANOCOBALAMIN (VITAMIN B12) 1,000 MCG TABLET PO SCH ×2 (09:14→20:16)
[2017-12-31] MEDS: MULTIVITAMIN 1 EACH TABLET PO SCH (09:14)
[2017-12-31] MEDS: CITALOPRAM HYDROBROMIDE 20 MG TABLET PO SCH (09:14)
[2017-12-31 09:16] LABS: BASOPHILS % 0.5 (0.0-1.5); MEAN CORPUSCULAR HEMOGLOBIN 29.6 pg (28.0-34.0); MEAN CORPUSCULAR VOLUME 89.7 fl (80.0-100.0); MONOCYTES % 6.6 % (0.0-11.0); NEUTROPHILS # 3.5 # k/uL (1.4-7.7)
[2017-12-31 09:47] LABS: eGFR (African) > 60; eGFR (Non-African) > 60
[2017-12-31 10:11] LABS: ABG PH 7.45 (7.35-7.45)
[2017-12-31 10:12] LABS: ABG BASE EXCESS 6.4 (-2 - +2)
[2017-12-31] MEDS: BUDESONIDE 0.5MG/2ML AMPUL.NEB NEB SCH ×2 (10:21→21:11)
--- NOTE | 2017-12-31 10:46 | History and Physical Report ---
History of Present Illnes - History of Present Illness Reason for Visit: dyspnea History of Present Illness: 82-year-old white female with a history of COPD. Patient does having some increasing shortness of breath dyspnea. Patient is on home oxygen at bedtime. Patient does have a history of sleep apnea. 24 hours prior to admission patient does having some increasing shortness of breath dyspnea on exertion. Patient stated that she had a slight productive cough up some clear to slightly yellow phlegm. No fever or chills noted. Patient was brought to the emergency room was felt to be having a mild exacerbation of her COPD and was admitted to observation care. On the morning following admission patient continues to have significant expiratory wheezing and needed supplemental oxygen in order to maintain her SaO2 greater than 92%. Patient was subsequently admitted to acute care for further aggressive treatment of her COPD exacerbation with IV steroids and high flow nebulization treatments. 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 Gastrointestinal: Other (history of pancreatitis) Heme/Onc: Iron deficiency anemia Renal/: Other (chronic hyponatremia) Endocrine: Diabetes (type 2) - Past Surgical History Past Surgical History: Appendectomy, Hysterectomy (total), Total Hip Replacement , Tonsillectomy, Other (AP Bladder suspension, PCI with stenting, nerve stimulator implantation, total shoulder replacement) - Past Social History Smoke: <1 pack per day Occupation: retired Alcohol: None Drugs: None Lives: Alone Domestic Violence: Negative - Health Maintenance Health Maintenance: Cholesterol, Influenza Vaccine, Pneumococcal Vaccine, Mammogram Influenza Vaccine: Current for this Influenza Season Pneumonia Vaccine: Yes (Prevnar and pneumo 23) Resuscitation Status: Resusciation Status Resuscitation Status Full Code - Unable to Obtain History Unable to Obtain: No Review of Systems - Review of Systems Constitutional: Weakness. negative: Fever, Chills Eyes: negative: vision change ENT: negative: Ear Pain, Ear Discharge, Nose Pain, Nose Discharge, Nose Congestion, Throat Pain, Throat Swelling Respiratory: Cough, Dry, Shortness of Breath, SOB with Excertion. negative: Hemoptysis, Pleuritic Pain, Sputum, Wheezing Cardiovascular: negative: Chest Pain, Palpitations, Orthopnea, Paroxysmal Noc. Dyspnea, Edema, Light Headedness Gastrointestinal: Constipation. negative: Nausea, Vomiting, Abdominal Pain, Diarrhea, Melena, Hematochezia Genitourinary: Incontinence (mild stress). negative: Dysuria, Frequency Musculoskeletal: Shoulder Pain. negative: Neck Pain Skin: negative: Rash Neurological: Weakness. negative: Numbness, Incoordination, Change in Speech, Confusion, Seizures - Medications/Allergies Allergies/Adverse Reactions: Allergies Allergy/AdvReac Type Severity Reaction Status Date / Time No Known Allergies Allergy Verified 12/30/17 20:54 Current Inpatient Medications: Current Inpatient Medications Albuterol/Ipratropium (Duoneb) 3 ml NEB Q4 PRN PRN Reason: Wheezing Atorvastatin Calcium (Lipitor) 20 mg PO HS [facility] Budesonide (Pulmicort) 0.5 mg NEB BID [facility] Last Admin: 12/31/17 10:21 Dose: 0.5 mg Citalopram Hydrobromide (Celexa) 10 mg PO DAILY [facility] Last Admin: 12/31/17 09:14 Dose: 10 mg Cyanocobalamin (Vitamin B-12) 1,000 mcg PO BID [facility] Last Admin: 12/31/17 09:14 Dose: 1,000 mcg Fludrocortisone Acetate (Florinef) 0.1 mg PO QDAY [facility] Last Admin: 12/31/17 09:13 Dose: 0.1 mg Gabapentin (Neurontin) 300 mg PO BID [facility] Last Admin: 12/31/17 09:13 Dose: 300 mg Gabapentin (Neurontin) 600 mg PO HS [facility] Insulin Human Regular (Humulin R) 0 - 12 unit SQ CHEMX3 [facility] PRN Reason: Protocol Levothyroxine Sodium (Levothyroxine Sodium) 125 mcg PO 0700 [facility] Lisinopril (Prinivil) 40 mg PO D [facility] Last Admin: 12/31/17 09:13 Dose: 40 mg Metformin HCl (Glucophage) 500 mg PO [id number] [facility] Methylprednisolone Sodium Succinate (Solu-Medrol) 80 mg IVP Q12 [facility] Miscellaneous (Chem Sticks) 1 each CHEMQID [facility] Multivitamins (Tab-A-Norm) 1 each PO DAILY [facility] Last Admin: 12/31/17 09:14 Dose: 1 each Exam - Exam Vital Signs: Vital Signs (72 hours) 12/30/17 12/31/17 12/31/17 23:55 00:19 01:31 Temperature 97.1 F L Pulse Rate [ Left] Pulse Rate [ 88 75 Pulse ox] Respiratory 22 18 Rate Blood Pressure 133/48 136/78 [Left Arm] O2 Sat by Pulse 88 L 92 91 L Oximetry 12/31/17 12/31/17 12/31/17 02:45 03:15 04:00 Temperature 97.2 F L Pulse Rate [ Left] Pulse Rate [ 85 Pulse ox] Respiratory 20 Rate Blood Pressure 136/57 [Left Arm] O2 Sat by Pulse 96 97 96 Oximetry 12/31/17 12/31/17 12/31/17 05:00 06:00 06:05 Temperature 97.3 F L Pulse Rate [ Left] Pulse Rate [ 78 Pulse ox] Respiratory 22 Rate Blood Pressure 138/69 [Left Arm] O2 Sat by Pulse 96 97 97 Oximetry 12/31/17 10:00 Temperature 98.9 F Pulse Rate [ 72 Left] Pulse Rate [ Pulse ox] Respiratory 24 Rate Blood Pressure 143/69 [Left Arm] O2 Sat by Pulse 98 Oximetry General: Alert, Oriented to Person, Oriented to Place, Oriented to Time, Cooperative, Mild distress HEENT: Atraumatic, PERRLA, EOMI, Mouth Mucous membr. moist/[place], Nose Mucous membr. moist/[place], Edentulous Neck: Normal Range of Motion Carotids: WNL Thyroid: WNL Lungs: Normal air movement, Speaks full Sentences, Wheezes (expiratory with prolng expiratory phase), Rales (few) Cardiovascular: Regular rate, Normal S1, Normal S2, No murmurs Murmur: No: Systolic Murmur Abdomen: Normal bowel sounds, Soft, No tenderness, No hepatospenomegaly, No masses Integumentary: Normal, [place], Warm, Dry Extremities: No clubbing, No cyanosis, No edema, Normal pulses, No tenderness/ swelling Neurological: Normal gait, Normal speech, Strength Equal Bilat, Normal tone, Sensation intact, Cranial nerves 3-12 NL, Reflexes 2+ Psych/Mental Status: Mental status NL, Mood NL, Appropriate Affect, Intact Judgment (mildly confused) - Laboratory Results Laboratory Results: Laboratory Results 12/30/17 12/31/17 12/31/17 Unknown 08:19 08:19 WBC 4.80 RBC 3.69 L Hgb 10.9 L Hct 33.1 L MCV 89.7 MCH 29.6 MCHC 33.0 RDW 14.1 Plt Count 239 Neut % (Auto) 71.5 Lymph % (Auto) 18.3 [place] % (Auto) 6.6 Eos % (Auto) 1.0 Baso % (Auto) 0.5 Neut # (Auto) 3.5 Lymph # (Auto) 0.9 [place] # (Auto) 0.3 Eos # (Auto) 0.0 Baso # (Auto) 0.0 Reactive Lymphs % 2.1 Reactive Lymphs # 0.1 Sodium 127 L 130 L Potassium 3.4 L 3.9 Chloride 86 L 88 L Carbon Dioxide 29 30 BUN 23 H 21 H Creatinine 1.10 H 0.90 Estimated Creat Clear 53 65 Est GFR ( Amer) > 60 > 60 Est GFR (Non-Af Amer) > 60 > 60 Glucose 246 H 235 H Calcium 8.6 8.7 Total Bilirubin 0.7 0.8 AST 21 22 ALT 25 28 Alkaline Phosphatase 87 83 Total Protein 6.1 L 5.8 L Albumin 3.5 3.4 L Assessment/Plan - Assessment/Plan (1) COPD with acute exacerbation Status: Acute Current Visit: Yes Assessment: Will start on IV steroids and continue with HFN of duoneb (2) Hyponatremia Status: Acute Current Visit: Yes Assessment: chronic, will montior (3) Renal insufficiency, mild Status: Acute Current Visit: Yes Assessment: stable at baseline will monitor (4) Coronary arteriosclerosis Status: Acute Current Visit: No Assessment: stable continue with present medications (5) Fall at home Status: Acute Current Visit: No (6) Diabetes mellitus type 2 Status: Chronic Current Visit: No Assessment: stable will start with sliding scale insulin if needed VTE Assessment - RISK FACTOR SCORE VTE RISK FACTOR SCORES: AGE OVER 60 YEARS, ACUTE RESPIRATORY FAILURE/SEVERE COPD , ANTICIPATED BED CONFINEMENT OR IMMOBILIZATION > 24 HOURS - RISK VTE HIGH RISK: SCORE OF 3-4 (RISK PROXIMAL DVT 4-8%) PROPHYLAXIS NEEDED
[2017-12-31] MEDS ORDERED: ATORVASTATIN CALCIUM 80 MG TABLET PO ONE (12:21)
[2017-12-31] MEDS: methylPREDNISolone SOD SUCC 40 MG/ML VIAL IVP SCH ×2 (12:29→20:19)
[2017-12-31] MEDS: INSULIN REGULAR, HUMAN 100 UNIT/ML 3ML VIAL SQ SCH ×2 (12:51→18:14)
[2017-12-31] MEDS: ATORVASTATIN CALCIUM 80 MG TABLET PO SCH (20:14)
[2017-12-31] MEDS: GABAPENTIN 100 MG CAPSULE PO SCH (20:14)
[2018-01-01] MEDS ORDERED: LEVOTHYROXINE SODIUM 100 MCG TABLET ONE (02:10)
[2018-01-01] MEDS ORDERED: LEVOTHYROXINE SODIUM 25 MCG TABLET ONE (02:10)
[2018-01-01] MEDS: LEVOTHYROXINE SODIUM 50 MCG TABLET PO SCH (05:57)
[2018-01-01] MEDS: INSULIN REGULAR, HUMAN 100 UNIT/ML 3ML VIAL SQ SCH ×3 (07:58→18:00)
[2018-01-01] MEDS: BUDESONIDE 0.5MG/2ML AMPUL.NEB NEB SCH ×2 (09:00→20:15)
[2018-01-01] MEDS: methylPREDNISolone SOD SUCC 40 MG/ML VIAL IVP SCH ×2 (09:25→20:05)
[2018-01-01] MEDS: CITALOPRAM HYDROBROMIDE 20 MG TABLET PO SCH (10:00)
[2018-01-01] MEDS: LISINOPRIL 20 MG TABLET PO SCH (10:00)
[2018-01-01] MEDS: FLUDROCORTISONE ACETATE 0.1 MG TABLET PO SCH (10:00)
[2018-01-01] MEDS: MULTIVITAMIN 1 EACH TABLET PO SCH (10:01)
[2018-01-01] MEDS: CYANOCOBALAMIN (VITAMIN B12) 1,000 MCG TABLET PO SCH ×2 (10:01→20:02)
[2018-01-01] MEDS ORDERED: ACETAMINOPHEN 325 MG TABLET PO PRN (15:35)
[2018-01-01] MEDS ORDERED: ACETAMINOPHEN 325 MG TABLET ONE (15:50)
[2018-01-01] MEDS: ATORVASTATIN CALCIUM 80 MG TABLET PO SCH (20:03)
[2018-01-01] MEDS: GABAPENTIN 100 MG CAPSULE PO SCH (20:04)
[2018-01-02] MEDS ORDERED: LEVOTHYROXINE SODIUM 25 MCG TABLET ONE (05:07)
[2018-01-02] MEDS ORDERED: LEVOTHYROXINE SODIUM 100 MCG TABLET ONE (05:10)
[2018-01-02] MEDS: LEVOTHYROXINE SODIUM 50 MCG TABLET PO SCH (06:14)
--- NOTE | 2018-01-02 07:45 | Inpatient Progress Note ---
Subjective - Required Recertification Statement I anticipate X number of days because-include discharge plan: 1 day - Review of Systems Events since last encounter: Patient seemed to be doing better today than she was yesterday. Patient continues to have some expiratory weaving. Patient is able to ambulate some better. With ambulation on room air patient did drop her SaO2 down to 83%. HEENT: Denies: Head Aches Pulmonary: Dyspnea, Cough. Denies: Pleuritic Chest Pain Cardiovascular: Denies: Chest Pain, Palpitations, Orthopnea, Paroxysmal Noc. Dyspnea Gastrointestinal: Denies: Nausea, Vomiting, Abdominal Pain Genitourinary: Denies: Dysuria Objective - Exam Vitals and I&O: Vital Signs Temp 98.1 F 01/02/18 06:00 Pulse 84 01/02/18 06:00 Resp 20 01/02/18 06:00 BP 118/60 01/02/18 06:00 Pulse Ox 95 01/02/18 06:00 Intake & Output 01/01/18 01/01/18 01/02/18 11:59 23:59 11:59 Intake Total 600 1060 250 Balance 600 1060 250 Intake: IV 100 Left Forearm 100 Oral 600 1060 150 Other: Voiding Method Bedside Commode Toilet Toilet # Voids 3 3 1 # Bowel Movements 0 General: Alert, Oriented to Person, Oriented to Place, Oriented to Time, Cooperative HEENT: Atraumatic, PERRLA, EOMI, Mouth Mucous membr. moist/[place], Nose Mucous membr. moist/[place] Neck: Supple, No JVD, No thyromegaly Lungs: Speaks full Sentences, Respiratory Distress, Wheezes, Prolonged Expiration. No: Normal air movement Cardiovascular: Regular rate, Normal S1, Normal S2, No murmurs Abdomen: Normal bowel sounds, Soft, No tenderness, No hepatospenomegaly, No masses Extremities: No clubbing, No cyanosis, No edema, Normal pulses, No tenderness/ swelling Skin: Normal, [place], Warm, Dry Neurological: Normal gait, Normal speech, Strength Equal Bilat, Normal tone, Sensation intact, Cranial nerves 3-12 NL, Reflexes 2+ Psych/Mental Status: Mental status NL, Mood NL, Appropriate Affect - Results Results: Laboratory Results WBC 4.80 K/ul (4.00-12.00) 12/31/17 08:19 RBC 3.69 M/ul (3.90-5.20) L 12/31/17 08:19 Hgb 10.9 g/dL (12.0-16.0) L 12/31/17 08:19 Hct 33.1 % (34.5-46.5) L 12/31/17 08:19 MCV 89.7 fl (80.0-100.0) 12/31/17 08: MCH 29.6 pg (28.0-34.0) 12/31/17 08: MCHC 33.0 g/dL (30.0-36.0) 12/31/17 08: RDW 14.1 % (11.3-14.3) 12/31/17 08: Plt Count 239 K/mm3 (130-400) 12/31/17 08: Neut % (Auto) 71.5 % (39.0-79.0) 12/31/17 08: Lymph % (Auto) 18.3 % (16.0-50.0) 12/31/17 08: [place] % (Auto) 6.6 % (0.0-11.0) 12/31/17 08: Eos % (Auto) 1.0 % (0.0-6.8) 12/31/17 08: Baso % (Auto) 0.5 (0.0-1.5) 12/31/17 08:19 Neut # (Auto) 3.5 # k/uL (1.4-7.7) 12/31/17 08: Lymph # (Auto) 0.9 # k/uL (0.6-4.0) 12/31/17 08:19 [place] # (Auto) 0.3 # k/uL (0.0-0.9) 12/31/17 08:19 Eos # (Auto) 0.0 # k/uL (0.0-0.6) 12/31/17 08:19 Baso # (Auto) 0.0 # k/uL (0.0-0.5) 12/31/17 08:19 Reactive Lymphs % 2.1 % (0.0-5.0) 12/31/17 08:19 Reactive Lymphs # 0.1 # k/uL (0.0-0.8) 12/31/17 08:19 pH 7.45 (7.35-7.45) 12/30/17 21:30 pCO2 45 mmhg (35-48) 12/30/17 21:30 pO2 57 mmhg (83-108) L 12/30/17 21:30 HCO3 29.7 Meq/L (21-28) H 12/30/17 21:30 ABG O2 Sat Calc/Karine 92 % (93-100) L 12/30/17 21:30 ABG Base Excess 6.4 (-2 - +2) H 12/30/17 21:30 Sodium 130 mmol/L (136-145) L 12/31/17 08:19 Potassium 3.9 mmol/L (3.5-5.1) 12/31/17 08:19 Chloride 88 mmol/L (98-107) L 12/31/17 08:19 Carbon Dioxide 30 mmol/L (22-30) 12/31/17 08:19 BUN 21 mg/dL (7-17) H 12/31/17 08:19 Creatinine 0.90 mg/dL (0.52-1.04) 12/31/17 08:19 Estimated Creat Clear 65 12/31/17 08:19 Est GFR ( Amer) > 60 (60-) 12/31/17 08:19 Est GFR (Non-Af Amer) > 60 (60-) 12/31/17 08:19 Glucose 235 mg/dL (74-106) H 12/31/17 08:19 Calcium 8.7 mg/dL (8.4-10.2) 12/31/17 08:19 Total Bilirubin 0.8 mg/dL (0.2-1.3) 12/31/17 08:19 AST 22 U/L (15-46) 12/31/17 08:19 ALT 28 U/L (13-69) 12/31/17 08:19 Alkaline Phosphatase 83 U/L (38-126) 12/31/17 08:19 Total Protein 5.8 g/dL (6.3-8.2) L 12/31/17 08:19 Albumin 3.4 g/dL (3.5-5.0) L 12/31/17 08:19 Assessment/Plan - Assessment/Plan (1) COPD with acute exacerbation Status: Acute Current Visit: Yes Assessment: Continue with IV steroids and nebulized treatments. (2) Hyponatremia Status: Acute Current Visit: Yes Assessment: stable (3) Renal insufficiency, mild Status: Acute Current Visit: Yes Assessment: stable (4) Coronary arteriosclerosis Status: Acute Current Visit: No Assessment: stable (5) Fall at home Status: Acute Current Visit: No (6) Diabetes mellitus type 2 Status: Chronic Current Visit: No Assessment: BS in the 200s
[2018-01-02] MEDS: INSULIN REGULAR, HUMAN 100 UNIT/ML 3ML VIAL SQ SCH ×5 (08:37→16:58)
[2018-01-02] MEDS: CITALOPRAM HYDROBROMIDE 20 MG TABLET PO SCH (09:03)
[2018-01-02] MEDS: FLUDROCORTISONE ACETATE 0.1 MG TABLET PO SCH (09:04)
[2018-01-02] MEDS: GABAPENTIN 300 MG CAPSULE PO SCH ×2 (09:04→21:55)
--- NOTE | 2018-01-02 09:04 | Inpatient Progress Note ---
Subjective - Required Recertification Statement I anticipate X number of days because-include discharge plan: 2 days - Review of Systems Events since last encounter: Patient does seem to be doing some better today. Patient (having some shortness of breath dyspnea with exertion. Patient is having some mild laryngitis symptoms. Patient continues to have a nonproductive cough. Objective - Exam Vitals and I&O: Vital Signs Temp 98.1 F 01/02/18 06:00 Pulse 84 01/02/18 06:00 Resp 20 01/02/18 06:00 BP 118/60 01/02/18 06:00 Pulse Ox 95 01/02/18 06:00 Intake & Output 01/01/18 01/01/18 01/02/18 11:59 23:59 11:59 Intake Total 600 1060 250 Balance 600 1060 250 Intake: IV 100 Left Forearm 100 Oral 600 1060 150 Other: Voiding Method Bedside Commode Toilet Toilet # Voids 3 3 1 # Bowel Movements 0 - Results Results: Laboratory Results WBC 4.80 K/ul (4.00-12.00) 12/31/17 08:19 RBC 3.69 M/ul (3.90-5.20) L 12/31/17 08:19 Hgb 10.9 g/dL (12.0-16.0) L 12/31/17 08:19 Hct 33.1 % (34.5-46.5) L 12/31/17 08:19 MCV 89.7 fl (80.0-100.0) 12/31/17 08:19 MCH 29.6 pg (28.0-34.0) 12/31/17 08:19 MCHC 33.0 g/dL (30.0-36.0) 12/31/17 08:19 RDW 14.1 % (11.3-14.3) 12/31/17 08:19 Plt Count 239 K/mm3 (130-400) 12/31/17 08:19 Neut % (Auto) 71.5 % (39.0-79.0) 12/31/17 08:19 Lymph % (Auto) 18.3 % (16.0-50.0) 12/31/17 08:19 [place] % (Auto) 6.6 % (0.0-11.0) 12/31/17 08:19 Eos % (Auto) 1.0 % (0.0-6.8) 12/31/17 08:19 Baso % (Auto) 0.5 (0.0-1.5) 12/31/17 08:19 Neut # (Auto) 3.5 # k/uL (1.4-7.7) 12/31/17 08:19 Lymph # (Auto) 0.9 # k/uL (0.6-4.0) 12/31/17 08:19 [place] # (Auto) 0.3 # k/uL (0.0-0.9) 12/31/17 08:19 Eos # (Auto) 0.0 # k/uL (0.0-0.6) 12/31/17 08:19 Baso # (Auto) 0.0 # k/uL (0.0-0.5) 12/31/17 08:19 Reactive Lymphs % 2.1 % (0.0-5.0) 12/31/17 08: Reactive Lymphs # 0.1 # k/uL (0.0-0.8) 12/31/17 08:19 pH 7.45 (7.35-7.45) 12/30/17 21:30 pCO2 45 mmhg (35-48) 12/30/17 21:30 pO2 57 mmhg (83-108) L 12/30/17 21:30 HCO3 29.7 Meq/L (21-28) H 12/30/17 21:30 ABG O2 Sat Calc/Karine 92 % (93-100) L 12/30/17 21:30 ABG Base Excess 6.4 (-2 - +2) H 12/30/17 21:30 Sodium 130 mmol/L (136-145) L 12/31/17 08:19 Potassium 3.9 mmol/L (3.5-5.1) 12/31/17 08:19 Chloride 88 mmol/L (98-107) L 12/31/17 08:19 Carbon Dioxide 30 mmol/L (22-30) 12/31/17 08:19 BUN 21 mg/dL (7-17) H 12/31/17 08:19 Creatinine 0.90 mg/dL (0.52-1.04) 12/31/17 08:19 Estimated Creat Clear 65 12/31/17 08:19 Est GFR ( Amer) > 60 (60-) 12/31/17 08:19 Est GFR (Non-Af Amer) > 60 (60-) 12/31/17 08:19 Glucose 235 mg/dL (74-106) H 12/31/17 08:19 Calcium 8.7 mg/dL (8.4-10.2) 12/31/17 08:19 Total Bilirubin 0.8 mg/dL (0.2-1.3) 12/31/17 08:19 AST 22 U/L (15-46) 12/31/17 08:19 ALT 28 U/L (13-69) 12/31/17 08:19 Alkaline Phosphatase 83 U/L (38-126) 12/31/17 08:19 Total Protein 5.8 g/dL (6.3-8.2) L 12/31/17 08:19 Albumin 3.4 g/dL (3.5-5.0) L 12/31/17 08:19 Assessment/Plan - Assessment/Plan (1) COPD with acute exacerbation Status: Acute Current Visit: Yes Assessment: slightly improved (2) Hyponatremia Status: Acute Current Visit: Yes Assessment: improved to 130 (3) Renal insufficiency, mild Status: Acute Current Visit: Yes Assessment: stable (4) Coronary arteriosclerosis Status: Chronic Current Visit: No Assessment: stable (5) Fall at home Status: Acute Current Visit: No (6) Diabetes mellitus type 2 Status: Chronic Current Visit: No Assessment: stable
[2018-01-02] MEDS: LISINOPRIL 20 MG TABLET PO SCH (09:05)
[2018-01-02] MEDS: CYANOCOBALAMIN (VITAMIN B12) 1,000 MCG TABLET PO SCH ×2 (09:05→21:53)
[2018-01-02] MEDS: MULTIVITAMIN 1 EACH TABLET PO SCH (09:06)
[2018-01-02] MEDS: methylPREDNISolone SOD SUCC 40 MG/ML VIAL IVP SCH ×2 (09:07→21:55)
[2018-01-02] MEDS: BUDESONIDE 0.5MG/2ML AMPUL.NEB NEB SCH ×2 (09:19→21:57)
[2018-01-02] MEDS: GABAPENTIN 100 MG CAPSULE PO SCH (21:53)
[2018-01-02] MEDS: ATORVASTATIN CALCIUM 80 MG TABLET PO SCH (21:53)
[2018-01-03] MEDS ORDERED: LEVOTHYROXINE SODIUM 25 MCG TABLET ONE (01:12)
[2018-01-03] MEDS ORDERED: LEVOTHYROXINE SODIUM 100 MCG TABLET ONE (01:14)
[2018-01-03] MEDS: LEVOTHYROXINE SODIUM 50 MCG TABLET PO SCH (06:24)
[2018-01-03 06:31] LABS: eGFR (African) > 60; eGFR (Non-African) > 60
[2018-01-03] MEDS: INSULIN REGULAR, HUMAN 100 UNIT/ML 3ML VIAL SQ SCH ×2 (07:27→11:32)
[2018-01-03] MEDS: CITALOPRAM HYDROBROMIDE 20 MG TABLET PO SCH (09:07)
[2018-01-03] MEDS: GABAPENTIN 300 MG CAPSULE PO SCH (09:08)
[2018-01-03] MEDS: LISINOPRIL 20 MG TABLET PO SCH (09:08)
[2018-01-03] MEDS: FLUDROCORTISONE ACETATE 0.1 MG TABLET PO SCH (09:08)
[2018-01-03] MEDS: MULTIVITAMIN 1 EACH TABLET PO SCH (09:09)
[2018-01-03] MEDS: CYANOCOBALAMIN (VITAMIN B12) 1,000 MCG TABLET PO SCH (09:09)
[2018-01-03] MEDS: BUDESONIDE 0.5MG/2ML AMPUL.NEB NEB SCH (09:28)
[2018-01-03] MEDS: methylPREDNISolone SOD SUCC 40 MG/ML VIAL IVP SCH (09:43)
[2018-01-03 10:00] VITALS: BP 159/67
[2018-01-03 18:21] LABS: BASO % 0.4 % (0.0-1.5); EOS % 0.2 % (0.0-6.8); LYMPH ABS # 0.91 thou/uL (0.60-4.00); MCH. 29.4 pg (28.0-34.0); MONOCYTE % 3.3 % (0.0-11.0); MONOCYTE ABS # 0.25 thou/uL (0.00-0.90); PLATELET COUNT 289 thou/uL (130-400)
[2018-01-04 14:01] LABS: BASOPHILS % 0.6 (0.0-1.5); EOSINOPHILS % 1.4 % (0.0-6.8); MEAN CORPUSCULAR HEMOGLOBIN 29.4 pg (28.0-34.0); MEAN CORPUSCULAR VOLUME 89.8 fl (80.0-100.0); MONOCYTES % 8.2 % (0.0-11.0); NEUTROPHILS # 4.8 # k/uL (1.4-7.7)
--- NOTE | 2018-01-19 14:47 | Discharge Summary ---
Discharge Summary - Discharge Sumary History of Present Illness: 82-year-old white female with a history of COPD. Patient does having some increasing shortness of breath dyspnea. Patient is on home oxygen at bedtime. Patient does have a history of sleep apnea. 24 hours prior to admission patient does having some increasing shortness of breath dyspnea on exertion. Patient stated that she had a slight productive cough up some clear to slightly yellow phlegm. No fever or chills noted. Patient was brought to the emergency room was felt to be having a mild exacerbation of her COPD and was admitted to observation care. On the morning following admission patient continues to have significant expiratory wheezing and needed supplemental oxygen in order to maintain her SaO2 greater than 92%. Patient was subsequently admitted to acute care for further aggressive treatment of her COPD exacerbation with IV steroids and high flow nebulization treatments. Condition at Discharge: Stable Home Medications: Ambulatory Orders Medication Instructions Recorded Multivitamin [Tab-A-Norm] 1 each PO DAILY 11/18/14 Ranitidine HCl [Zantac] 150 mg PO D 05/20/15 Folic Acid [FA-8] 0.8 mg PO D 12/17/15 Gabapentin [Neurontin] 300 mg PO BID 06/17/17 Gabapentin [Neurontin] 600 mg PO HS 12/19/17 Acetaminophen [Tylenol] 650 mg PO Q6H PRN tablet 01/03/18 Atorvastatin Calcium 40 mg PO HS #30 tablet 01/03/18 Bisacodyl [Dulcolax] 5 - 10 mg PO QD PRN #60 tablet. 01/03/18 Docusate Sodium [Colace] 100 mg PO DAILY #30 capsule 01/03/18 Ferrous Sulfate [Feosol] 325 mg PO D #30 tablet 01/03/18 Magnesium Oxide [Magnesium] 400 mg PO BID #60 tablet 01/03/18 Melatonin 5 mg PO PM #30 capsule 01/03/18 Metformin HCl [Glucophage] 500 mg PO DIRECTED #120 tablet 01/03/18 clonazePAM [Klonopin] 0.25 mg PO HS PRN #30 tablet 01/03/18 predniSONE [Deltasone] 10 mg PO DAILY #21 tablet 01/03/18 Consultations this Visit: None Procedures this Visit: None Allergies/Adverse Reactions: Allergies Allergy/AdvReac Type Severity Reaction Status Date / Time No Known Allergies Allergy Verified 12/30/17 20:54 Discharge Summary: Was started on supplemental oxygen in order to maintain SaO2 greater than 92%. Oxygen was able to be weaned down to 2 L per nasal cannula at the time to discharge. Patient was started on DuoNeb treatment and IV steroids. Patient breathing status did improve during the course of hospitalization. At the time to discharge patient required supplemental oxygen in order to maintain her SaO2 greater than 92%. Patient was moving here better on admission. Patient hyponatremia did improve during her hospitalization with IV fluids of normal saline. Patient did have some mild hypokalemia that was corrected during her hospitalization. Patient diabetes mellitus remain fairly stable blood sugars were elevated in the 250 range. Patient was started on insulin therapy. Patient chronic kidney disease remains stable to improved. - Final Diagnosis (1) COPD with acute exacerbation Problems: improved at discharge, still requires supplemental oxygen (2) Hyponatremia Problems: improved (3) Renal insufficiency, mild Problems: stable (4) Coronary arteriosclerosis Problems: stable on home medications (5) Fall at home Problems: stable (6) Diabetes mellitus type 2 Problems: Patient started on insulin
== END 2018-01-03 12:50 | DRG 191 ==
LOC: ED 20:42 → UNDOADMOB 23:33 → SOUTH 23:33 → OBSVTOIN 12-31 15:45 → SOUTH 12-31 15:45 → INTOOBSV 12-31 15:45
PROVIDERS: ADMIT Family Medicine; ATTEND Family Medicine
DX: J44.1 Chronic obstructive pulmonary disease with (acute) exacerbation (principal); E87.1 Hypo-osmolality and hyponatremia; N28.9 Disorder of kidney and ureter, unspecified; I25.10 Atherosclerotic heart disease of native coronary artery without angina pectoris; I10 Essential (primary) hypertension; F17.210 Nicotine dependence, cigarettes, uncomplicated; E11.9 Type 2 diabetes mellitus without complications; D50.9 Iron deficiency anemia, unspecified; Z91.81 History of falling
CPT/HCPCS: 36415; 36600; 71045; 80053; 82803; 85025; 97165; 97535; J1030; J1815; J7626; 94640; 99222; 99232; 99238; 99284; J2920; S1016

== ENCOUNTER 2018-01-09 10:38 | Emergency (ER) | payer MEDICARE, OTHER ==
--- NOTE | 2018-01-09 10:46 | ED Physician Documentation ---
General Adult - HISTORIAN Historian: patient - HPI Stated Complaint: cough and low sodium (per halfway) Chief Complaint: Cough/ Upper Respiratory Onset: days ago (3) Timing: still present Severity: mild Further Comments: yes (She states she is not sure why she is here but thinks it is "low fluids" Dr Pitt did call about pt prior to arrival and said her sodium was low at halfway and she has had a cought that is concerning for staff at halfway. She wears oxygen all the time at home. No fever. No N/V/D ) Last known Well Code/Unknown Code: Unknown - ROS CONST: denies: fever, recent illness, weakness EYES/ENT: denies: nasal drainage CVS/RESP: cough ("I stay with a cough") GI/: denies: vomiting, nausea, diarrhea MS/SKIN/LYMPH: none. denies: rash NEURO/PSYCH: denies: headache, fainting, dizziness - PAST HX Past History: COPD, hypertension, other (DM type 2 ) Surgeries/Procedures: other (unknown ) Immunizations: UTD Allergies/Adverse Reactions: Allergies Allergy/AdvReac Type Severity Reaction Status Date / Time No Known Allergies Allergy Verified 12/30/17 20:54 Home Medications: Ambulatory Orders Medication Instructions Recorded Multivitamin [Tab-A-Norm] 1 each PO DAILY 11/18/14 Ranitidine HCl [Zantac] 150 mg PO D 05/20/15 Folic Acid [FA-8] 0.8 mg PO D 12/17/15 Gabapentin [Neurontin] 300 mg PO BID 06/17/17 Gabapentin [Neurontin] 600 mg PO HS 12/19/17 Acetaminophen [Tylenol] 650 mg PO Q6H PRN tablet 01/03/18 Atorvastatin Calcium 40 mg PO HS #30 tablet 01/03/18 Bisacodyl [Dulcolax] 5 - 10 mg PO QD PRN #60 tablet. 01/03/18 Docusate Sodium [Colace] 100 mg PO DAILY #30 capsule 01/03/18 Ferrous Sulfate [Feosol] 325 mg PO D #30 tablet 01/03/18 Insulin Glargine,Hum.rec.anlog 5 unit SQ D #15 ml 01/03/18 [Lantus Solostar] Magnesium Oxide [Magnesium] 400 mg PO BID #60 tablet 01/03/18 Melatonin 5 mg PO PM #30 capsule 01/03/18 Metformin HCl [Glucophage] 500 mg PO DIRECTED #120 tablet 01/03/18 clonazePAM [Klonopin] 0.25 mg PO HS PRN #30 tablet 01/03/18 predniSONE [Deltasone] 10 mg PO DAILY #21 tablet 01/03/18 - SOCIAL HX Smoking History: quit greater than 1 year Alcohol Use: none Drug Use: none - FAMILY HX Family History: No - VITAL SIGNS Vital Signs: Vital Signs Temp Pulse Resp BP Pulse Ox 159/67 01/03/18 12:23 - REVIEWED ASSESSMENTS Nursing Assessment Reviewed: Yes Vitals Reviewed: Yes ED Results Lab/Radiology - Radiology Radiology Impressions: Examination: PA and lateral chest. History: Evaluate lung bustamante. COUGH X 3 DAYS (Hx) Comparison exam: 30 December 2017 Findings: PA lateral chest demonstrate a normal cardiac and mediastinal silhouette. Vascular calcifications involving the aortic arch. Stable chronic interstitial changes. Mild blunting/haziness of the posterior sulci. Left medial posterior lung granuloma. Bilateral shoulder replacement. Cervical fixation hardware. Neurostimulator wires. Impression: Chronic interstitial changes. Posterior sulci blunting suggesting infiltrate/effusion. Correlate with patient symptoms. Electronically signed on Jan 09, 2018 11:37:35 AM CDT by: Karan Mason General Adult Physical Exam - PHYSICAL EXAM GENERAL APPEARANCE: no distress EENT: eye inspection normal NECK: normal inspection RESPIRATORY: no resp distress, wheezes CVS: reg rate & rhythm, heart sounds normal, equal pulses, no murmur ABDOMEN: soft, normal bowel sounds, no distension, non-tender SKIN: warm/dry, normal color EXTREMITIES: non-tender, normal range of motion, no evidence of injury, no edema NEURO: oriented X3, CN's nml as tested, motor nml, sensation nml, mood/affect nml, cognition normal Discharge Clincal Impression: Pneumonia Qualifiers: Pneumonia type: due to unspecified organism Laterality: unspecified laterality Lung location: unspecified part of lung Qualified Code(s): J18.9 - Pneumonia, unspecified organism Referrals: Royal Ferrell MD [Primary Care Provider] - 2 Days Additional Instructions: 1. Levaquin 500 mg daily 2. Duoneb breathing treatments QID daily 3. Continue prednisone 4. Oxygen at home as ordered 5. Re check CBC in 2 days 6. Follow up with PCP in 2-4 days 7. Return to ER for fever, increased cough, increased shortness of air or other concerns Condition: Stable Disposition: 01 HOME, SELF-CARE Decision to Admit: NO Date of Decison to Admit: 01/09/18 Decision Time: 11:48
[2018-01-09] MEDS: 0.9 % SODIUM CHLORIDE 1,000 ML IV ONE (10:50)
[2018-01-09 11:24] LABS: MEAN CORPUSCULAR HEMOGLOBIN 29.1 pg (28.0-34.0); MEAN CORPUSCULAR VOLUME 91.2 fl (80.0-100.0); eGFR (African) > 60; eGFR (Non-African) > 60
--- NOTE | 2018-01-09 11:38 | Diagnostic Imaging Report ---
MELANIE NIEVES [facility] [id number] [facility] [address] [place], [place]. [address] Report Submission Date: Jan 09, 2018 11:37:35 AM CDT Patient Study Name: EFRAIN FINLEY Date: Jan 09, 2018 11:10:57 AM CDT Modality Type: DX Gender: F Description: CHEST : 39 Institution: [facility] Physician: MELANIE NIEVES Examination: PA and lateral chest. History: Evaluate lung bustamante. COUGH X 3 DAYS (Hx) Comparison exam: 30 December 2017 Findings: PA lateral chest demonstrate a normal cardiac and mediastinal silhouette. Vascular calcifications involving the aortic arch. Stable chronic interstitial changes. Mild blunting/haziness of the posterior sulci. Left medial posterior lung granuloma. Bilateral shoulder replacement. Cervical fixation hardware. Neurostimulator wires. Impression: Chronic interstitial changes. Posterior sulci blunting suggesting infiltrate/effusion. Correlate with patient symptoms. Electronically signed on Jan 09, 2018 11:37:35 AM CDT by: Karan HUMMEL
[2018-01-09 12:13] VITALS: BP 134/57
[2018-01-10 07:49] LABS: MONOCYTES % 1 % (0-11); SEGMENTED NEUTROPHILS % 91 % (39-79)
== END 2018-01-09 12:12 | disposition home or self-care (01) ==
LOC: ED 10:38
DX: J18.9 Pneumonia, unspecified organism (principal); E87.1 Hypo-osmolality and hyponatremia
CPT/HCPCS: 71046; 80053; 85025; 99283; J7030; S1016

== ENCOUNTER 2018-02-04 11:40 | Observation (INO) | payer MEDICARE, OTHER ==
[2018-02-04] MEDS ORDERED: ONDANSETRON HCL/PF 4 MG/ 2ML VIAL IVP PRN (12:12)
[2018-02-04] MEDS ORDERED: DOCUSATE SODIUM 100 MG CAPSULE PO PRN (12:43)
[2018-02-04] MEDS ORDERED: BISACODYL 5 MG TABLET.DR PO PRN ×2 (12:43→15:00)
[2018-02-04] MEDS ORDERED: clonazePAM 0.5 MG TABLET PO PRN (12:43)
[2018-02-04] MEDS ORDERED: HYDROcodone /APAP 5/325 1 EACH TABLET PO PRN (12:43)
[2018-02-04] MEDS ORDERED: ACETAMINOPHEN 325 MG TABLET PO PRN (12:43)
[2018-02-04] MEDS ORDERED: IPRATROPIUM/ALBUTEROL SULFATE 3 ML AMPUL.NEB NEB PRN (12:43)
[2018-02-04 12:50] LABS: BASOPHILS % 0.3 (0.0-1.5); MEAN CORPUSCULAR HEMOGLOBIN 28.9 pg (28.0-34.0); MEAN CORPUSCULAR VOLUME 88.1 fl (80.0-100.0); MONOCYTES % 4.7 % (0.0-11.0); NEUTROPHILS # 4.8 # k/uL (1.4-7.7)
[2018-02-04] MEDS ORDERED: ATORVASTATIN CALCIUM 80 MG TABLET PO ONE (12:55)
[2018-02-04 13:08] LABS: eGFR (African) > 60; eGFR (Non-African) > 60
--- NOTE | 2018-02-04 13:18 | History and Physical Report ---
History of Present Illnes - History of Present Illness Reason for Visit: nausea vomiting History of Present Illness: 82-year-old white female who stated approximately three days ago she developed a diarrhea. Patient denies any medication or melena. Patient stated that seem to have improved but now she is having some nausea associated with vomiting. Patient is not been able to keep anything down for the last 24 hours. Patient is diabetic. Patient blood sugars have been stable. Patient does have a history of hyponatremia. It was felt that the patient with need to be admitted to hospital given some IV Zofran and to monitor her blood sugars. 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: Peripheral neuropathy Gastrointestinal: Other (history of pancreatitis) Heme/Onc: Iron deficiency anemia Psych: Depression Renal/: Other (chronic hyponatremia) Endocrine: Diabetes (type 2) - Past Surgical History Past Surgical History: Appendectomy, Hysterectomy (total), Total Hip Replacement , Tonsillectomy, Other (AP Bladder suspension, PCI with stenting, nerve stimulator implantation, total shoulder replacement) - Past Social History Smoke: <1 pack per day Occupation: retired Alcohol: None Drugs: None Lives: Alone Domestic Violence: Negative - Health Maintenance Health Maintenance: Cholesterol, Influenza Vaccine, Pneumococcal Vaccine, Mammogram Pneumonia Vaccine: Yes Resuscitation Status: Resusciation Status Resuscitation Status Do Not Resuscitate - Unable to Obtain History Unable to Obtain: No Review of Systems - Review of Systems Constitutional: Weakness. negative: Fever, Chills Eyes: negative: vision change ENT: negative: Ear Pain, Ear Discharge, Nose Congestion, Mouth Pain, Mouth Swelling, Throat Pain, Throat Swelling Respiratory: Cough, Dry Cardiovascular: negative: Chest Pain, Palpitations, Paroxysmal Noc. Dyspnea Gastrointestinal: Nausea, Vomiting (this AM), Abdominal Pain, Diarrhea (last was 2 days ago). negative: Constipation, Melena, Hematochezia Genitourinary: negative: Dysuria, Frequency, Incontinence, Hematuria Musculoskeletal: Neck Pain, Back Pain, Hand Pain. negative: Shoulder Pain, Arm Pain Skin: negative: Rash Neurological: Weakness. negative: Numbness, Incoordination, Change in Speech, Confusion - Medications/Allergies Allergies/Adverse Reactions: Allergies Allergy/AdvReac Type Severity Reaction Status Date / Time No Known Allergies Allergy Verified 12/30/17 20:54 Current Inpatient Medications: Current Inpatient Medications Acetaminophen (Tylenol) 650 mg PO Q6H PRN PRN Reason: Fever >101 Albuterol/Ipratropium (Duoneb) 3 ml NEB Q4 PRN PRN Reason: dyspnea Atorvastatin Calcium (Lipitor) 40 mg PO HS [facility] Bisacodyl (Dulcolax) 5 - 10 mg PO QD PRN PRN Reason: Constipation Budesonide (Pulmicort) 0.5 mg NEB BID [facility] Citalopram Hydrobromide (Celexa) 10 mg PO DAILY [facility] Clonazepam (Klonopin) 0.25 mg PO HS PRN PRN Reason: restless leg syndrom3 Docusate Sodium (Colace) 100 mg PO D PRN PRN Reason: Constipation Enoxaparin Sodium (Lovenox) 30 mg SQ QD [facility] Stop: 02/17/18 13:01 Fludrocortisone Acetate (Florinef) 0.1 mg PO QDAY [facility] Folic Acid (Folvite) 1 mg PO DAILY [facility] Gabapentin (Neurontin) 300 mg PO BID [facility] Insulin Human Regular (Humulin R) 0 - 12 unit SQ CHEMQID [facility] PRN Reason: Protocol Lisinopril (Prinivil) 40 mg PO D [facility] Magnesium Oxide (Mag-Oxide) 400 mg PO BID [facility] Melatonin (Melatonin) 3 mg PO HS [facility] Metformin HCl (Glucophage) 500 mg PO DIRECTED [facility] Miscellaneous (Patient Own Med) 1 each INH D [facility] Miscellaneous (Patient Own Med) 1 each PO BID [facility] Miscellaneous (Chem Sticks) 1 each MC CHEMQID [facility] Ondansetron HCl (Zofran 4 Mg/2 Ml) 4 mg IVP Q6 PRN PRN Reason: Nausea / Vomiting Sodium Chloride (Normal Saline Flush) 3 ml IV BID [facility] Exam - Exam General: Alert, Oriented to Person, Oriented to Place, Oriented to Time, Cooperative, Mild distress HEENT: Atraumatic, PERRLA, EOMI, Nose Mucous membr. moist/[place], Poor Dentition ( multiple teeth missing), Hearing Grossly Normal, Other. No: Mouth Mucous membr. moist/[place] (dry mucosla membranes), Pharyngeal Erythema, Tonsillar Exudate Neck: Normal Range of Motion Lungs: Clear to auscultation, Normal air movement, Speaks full Sentences, Wheezes (occasional expiratory). No: Rales, Rhonchi Cardiovascular: Regular rate, Normal S1, Normal S2, No murmurs Abdomen: Normal bowel sounds, Soft, No tenderness, No hepatospenomegaly, No masses Integumentary: Normal, [place], Warm, Dry Extremities: No clubbing, No cyanosis, No edema, Normal pulses, No tenderness/ swelling Neurological: Normal gait, Normal speech, Strength Equal Bilat, Normal tone, Sensation intact, Cranial nerves 3-12 NL, Reflexes 2+ Psych/Mental Status: Mental status NL, Mood NL, Appropriate Affect, Intact Judgment - Laboratory Results Laboratory Results: Laboratory Results 02/04/18 02/04/18 12:45 12:45 WBC 6.10 RBC 4.15 Hgb 12.0 Hct 36.6 MCV 88.1 MCH 28.9 MCHC 32.8 RDW 14.0 Plt Count 283 Neut % (Auto) 77.8 Lymph % (Auto) 13.2 L [place] % (Auto) 4.7 Eos % (Auto) 3.0 Baso % (Auto) 0.3 Neut # (Auto) 4.8 Lymph # (Auto) 0.8 [place] # (Auto) 0.3 Eos # (Auto) 0.2 Baso # (Auto) 0.0 Reactive Lymphs % 0.9 Reactive Lymphs # 0.1 Sodium 134 L Potassium 4.0 Chloride 91 L Carbon Dioxide 29 BUN 16 Creatinine 0.90 Est GFR ( Amer) > 60 Est GFR (Non-Af Amer) > 60 Glucose 151 H Calcium 9.0 Total Bilirubin 0.8 AST 16 ALT 26 Alkaline Phosphatase 103 Total Protein 7.5 Albumin 4.0 Assessment/Plan - Assessment/Plan (1) Viral gastroenteritis Status: Acute Current Visit: Yes Assessment: Patient will be started on clear liquid diet. Patient will be given Zofran to help with the nausea and vomiting. Well get blood work done that the patient needs supplemental IV fluids at this time. (2) Hyponatremia Status: Chronic Current Visit: No Assessment: Will get a CMP to see with the patient sodium level is. May need to supplement sodium with IV fluids. (3) Chronic obstructive pulmonary disease Status: Chronic Current Visit: No Assessment: This to be stable at this time. Will continue with home medications. (4) Diabetes mellitus type 2 Status: Chronic Current Visit: No Assessment: Patient will be continued on home medications. Was that the patient sliding scale insulin. Will monitor blood sugars closely. VTE Assessment - RISK FACTOR SCORE VTE RISK FACTOR SCORES: AGE OVER 60 YEARS
[2018-02-04] MEDS: MELATONIN 3 MG TABLET PO SCH ×2 (13:55→21:47)
[2018-02-04] MEDS: ATORVASTATIN CALCIUM 80 MG TABLET PO SCH ×2 (13:55→20:47)
[2018-02-04] MEDS: ENOXAPARIN SODIUM 30 MG/0.3 ML DISP.SYRIN SQ SCH (13:55)
[2018-02-04] MEDS ORDERED: 0.9 % SODIUM CHLORIDE 1,000 ML IV SCH (14:00)
[2018-02-04] MEDS: INSULIN REGULAR, HUMAN 100 UNIT/ML 3ML VIAL SQ SCH ×3 (14:06→20:31)
[2018-02-04 17:14] VITALS: BMI 26.1
[2018-02-04] MEDS: GABAPENTIN 300 MG CAPSULE PO SCH (20:34)
[2018-02-04] MEDS: MAGNESIUM OXIDE 400 MG TABLET PO SCH (20:34)
[2018-02-04] MEDS: PATIENT OWN MED 1 EACH EACH PO SCH (20:36)
[2018-02-04] MEDS: BUDESONIDE 0.5MG/2ML AMPUL.NEB NEB SCH (20:40)
[2018-02-04] MEDS ORDERED: Non-Formulary 1 EACH (Atorvastatin Calcium [Atorvastatin Calcium] 40 MG) PO SCH (21:00)
[2018-02-04] MEDS ORDERED: PATIENT OWN MED 1 EACH EACH PO SCH (21:00)
[2018-02-04] MEDS: SALINE FLUSH 10 ML DISP.SYRIN IV SCH (21:48)
[2018-02-05] MEDS: INSULIN REGULAR, HUMAN 100 UNIT/ML 3ML VIAL SQ SCH ×2 (07:21→12:32)
[2018-02-05] MEDS ORDERED: CITALOPRAM HYDROBROMIDE 20 MG TABLET PO SCH (09:00)
[2018-02-05] MEDS ORDERED: PATIENT OWN MED 1 EACH EACH INH SCH (09:00)
[2018-02-05] MEDS ORDERED: LISINOPRIL 20 MG TABLET PO SCH (09:00)
[2018-02-05] MEDS ORDERED: FOLIC ACID 1 MG TABLET PO SCH (09:00)
[2018-02-05] MEDS ORDERED: FLUDROCORTISONE ACETATE 0.1 MG TABLET PO SCH (09:00)
[2018-02-05] MEDS: MAGNESIUM OXIDE 400 MG TABLET PO SCH (09:35)
[2018-02-05] MEDS: GABAPENTIN 300 MG CAPSULE PO SCH (09:35)
[2018-02-05] MEDS: PATIENT OWN MED 1 EACH EACH PO SCH (09:37)
[2018-02-05] MEDS: SALINE FLUSH 10 ML DISP.SYRIN IV SCH (09:40)
[2018-02-05] MEDS: BUDESONIDE 0.5MG/2ML AMPUL.NEB NEB SCH (09:55)
--- NOTE | 2018-02-05 09:59 | Discharge Summary ---
Discharge Summary - Discharge Sumary History of Present Illness: 82-year-old white female who approximately three days prior to admission developed some diarrhea. This did improve. 24 hours prior to admission over patient does have some nausea and vomiting. Patient was not able to keep any oral medications or fluids down. Patient was seen in the clinic. There was concern that the patient has a history of diabetes mellitus and hyponatremia with these chronic medical conditions with deteriorate with her nausea and vomiting. Patient was subsequently admitted to the hospital to be monitored and for IV Zofran. Condition at Discharge: Stable Home Medications: Ambulatory Orders Medication Instructions Recorded Multivitamin [Tab-A-Norm] 1 each PO DAILY 11/18/14 Ranitidine HCl [Zantac] 150 mg PO D 05/20/15 Folic Acid [FA-8] 0.8 mg PO D 12/17/15 Gabapentin [Neurontin] 300 mg PO BID 06/17/17 Gabapentin [Neurontin] 600 mg PO HS 12/19/17 Acetaminophen [Tylenol] 650 mg PO Q6H PRN tablet 01/03/18 Atorvastatin Calcium 40 mg PO HS #30 tablet 01/03/18 Bisacodyl [Dulcolax] 5 - 10 mg PO QD PRN #60 tablet. 01/03/18 Docusate Sodium [Colace] 100 mg PO DAILY #30 capsule 01/03/18 Ferrous Sulfate [Feosol] 325 mg PO D #30 tablet 01/03/18 Magnesium Oxide [Magnesium] 400 mg PO BID #60 tablet 01/03/18 Melatonin 5 mg PO PM #30 capsule 01/03/18 Metformin HCl [Glucophage] 500 mg PO DIRECTED #120 tablet 01/03/18 clonazePAM [Klonopin] 0.25 mg PO HS PRN #30 tablet 01/03/18 Consultations this Visit: None Procedures this Visit: None Allergies/Adverse Reactions: Allergies Allergy/AdvReac Type Severity Reaction Status Date / Time No Known Allergies Allergy Verified 12/30/17 20:54 Patient Problems: Current Active Problems Problem Status Onset Viral gastroenteritis Acute Discharge Summary: Patient was admitted to the hospital after she developed nausea and vomiting. Several of her other family members at home had similar symptoms. Patient is diabetic and was not able to keep her medications down. Patient was started on IV Zofran. Blood work was drawn in show that the patient electrolyte were stable along with her creatinine and BUN. But the Zofran patient was able to tolerate oral fluids. Patient blood sugars were monitored closely. At the time to discharge patient was taking an oral fluids without much trouble. Patient was subsequently discharged home in stable condition. - Final Diagnosis (1) Viral gastroenteritis Problems: improved (2) Hyponatremia Problems: stable (3) Chronic obstructive pulmonary disease Problems: stable (4) Diabetes mellitus type 2 Problems: stable
[2018-02-05 10:49] LABS: APPEARANCE,URINE Clear (CLEAR); COLOR,URINE Yellow (YELLOW); OCCULT BLOOD,URINE Trace-intact (NEGATIVE); PH URINE 7.5 (5.0 - 8.0); UROBILINOGEN URINE 0.2 Eu (0.2-1.0)
[2018-02-05] MEDS: ENOXAPARIN SODIUM 30 MG/0.3 ML DISP.SYRIN SQ SCH (12:38)
[2018-02-05 12:57] VITALS: BP 195/78
== END 2018-02-05 12:50 | disposition home or self-care (01) ==
LOC: SOUTH 11:40
PROVIDERS: ADMIT Family Medicine; ATTEND Family Medicine
DX: A08.4 Viral intestinal infection, unspecified (principal); E87.1 Hypo-osmolality and hyponatremia; J44.9 Chronic obstructive pulmonary disease, unspecified; E11.9 Type 2 diabetes mellitus without complications; I10 Essential (primary) hypertension; I25.10 Atherosclerotic heart disease of native coronary artery without angina pectoris
CPT/HCPCS: 80053; 81002; 85025; G0378; G0379; J1650; J1815; J7626; 99217; 99219; S1016

== ENCOUNTER 2018-03-05 10:54 | Outpatient (CLI) | payer MEDICARE, OTHER ==
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
== END 2018-03-05 10:56 ==
LOC: PULMONARY 10:54
PROVIDERS: ATTEND Internal Medicine Pulmonary Disease
DX: J44.9 Chronic obstructive pulmonary disease, unspecified (principal); Z72.0 Tobacco use; Z99.81 Dependence on supplemental oxygen; G47.33 Obstructive sleep apnea (adult) (pediatric); I25.10 Atherosclerotic heart disease of native coronary artery without angina pectoris; I10 Essential (primary) hypertension; E11.9 Type 2 diabetes mellitus without complications; E87.1 Hypo-osmolality and hyponatremia; G62.9 Polyneuropathy, unspecified; D64.9 Anemia, unspecified; E78.5 Hyperlipidemia, unspecified; G45.9 Transient cerebral ischemic attack, unspecified; G25.81 Restless legs syndrome
CPT/HCPCS: 99214; G0463

== ENCOUNTER 2018-07-10 14:13 | Emergency (ER) | payer MEDICARE, OTHER ==
--- NOTE | 2018-07-10 14:20 | ED Physician Documentation ---
General Adult - HISTORIAN Historian: patient - HPI Stated Complaint: change in ms Chief Complaint: General Adult Onset: hours Timing: still present Further Comments: yes (Pt is an 83 yo female intermediate resident with change in mental status. Pt was out with her daughter, returning home in a car, and was unable to find the water bottle that she keeps in the door. When daughter got the waterbottle for her, she lifted it toward her mouth and then seemed not to know what to do with it. Daughter asked her what year it was, and the pt answered, "24." Pt has had TIA's in the past and she has an extensive PMHx including COPD on home O2 prn, CAD, HTN, DM2, peripheral neuropathy, chronic hyponatermia, iron deficiency anemia, HLD, MERY, restless leg syndrome. Pt has a stimulator in her back for pain control.) - ROS CONST: no problems EYES/ENT: none CVS/RESP: shortness of breath (chronic) GI/: none MS/SKIN/LYMPH: none NEURO/PSYCH: other (confusion) - PAST HX Past History: other (COPD on home O2 prn, CAD, HTN, DM2, peripheral neuropathy, chronic hyponatermia, iron deficiency anemia, HLD, MERY, restless leg syndrome, stimulator in back for pain control. ) Allergies/Adverse Reactions: Allergies Allergy/AdvReac Type Severity Reaction Status Date / Time No Known Allergies Allergy Verified 07/10/18 14:40 Home Medications: Ambulatory Orders Medication Instructions Recorded Multivitamin [Tab-A-Norm] 1 each PO DAILY 11/18/14 Ranitidine HCl [Zantac] 150 mg PO D 05/20/15 Folic Acid [FA-8] 0.8 mg PO D 12/17/15 Gabapentin [Neurontin] 300 mg PO BID 06/17/17 Acetaminophen [Tylenol] 650 mg PO Q6H PRN tablet 01/03/18 Atorvastatin Calcium 40 mg PO HS #30 tablet 01/03/18 Bisacodyl [Dulcolax] 5 - 10 mg PO QD PRN #60 tablet. 01/03/18 Docusate Sodium [Colace] 100 mg PO DAILY #30 capsule 01/03/18 Ferrous Sulfate [Feosol] 325 mg PO D #30 tablet 01/03/18 Magnesium Oxide [Magnesium] 400 mg PO BID #60 tablet 01/03/18 Melatonin 5 mg PO PM #30 capsule 01/03/18 Metformin HCl [Glucophage] 500 mg PO DIRECTED #120 tablet 01/03/18 - SOCIAL HX Smoking History: other (recently quit smoking) - FAMILY HX Family History: Yes (Father: cancer, lung dz, heart dz; Sister: cancer, heart dz) - VITAL SIGNS Vital Signs: Vital Signs Temp Pulse Resp BP Pulse Ox 195/78 02/05/18 10:00 - REVIEWED ASSESSMENTS Nursing Assessment Reviewed: Yes Vitals Reviewed: Yes Progress - Progress Progress: Accucheck 223, SpO2 = 87% on presentation (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 There is cardiomegaly. Bilateral shoulder arthroplasty cervical fusion an epidural catheters are again noted. Cardiomegaly is present. No acute infiltrate is seen. Impression: No acute pulmonary disease. Decreased lung field ventilation. CT brain w/o contrast: There is no evidence of intracranial mass effect, hemorrhage, or acute hydrocephalus. The lateral ventricles are enlarged and the 4th ventricle is midline without shift. No acute brain parenchymal changes or extra-axial fluid collections are identified. There is cerebral atrophy and white matter gliosis. Cerebellar atrophy is present. There is intracranial atherosclerotic vascular calcification. The calvarium is intact. The visualized sinuses and mastoid air cells are clear. IMPRESSION: No acute intracranial process.. Chronic atrophy and white matter gliosis. pt improved Follow up with Neurologist in am to consider possible need for carotid Doppler studies. Return to ER if symptoms worsen or you have concerns. Follow up with [facility] as planned. - EKG/XRAY/CT EKG: NSR (HR=89; normal MT interval; normal axis; non-specific ST/T-wave changes.) General Adult Physical Exam - PHYSICAL EXAM GENERAL APPEARANCE: mild distress EENT: dry mucous membranes NECK: normal inspection, supple RESPIRATORY: no resp distress, chest non-tender, breath sounds normal CVS: reg rate & rhythm, heart sounds normal ABDOMEN: soft, no organomegaly, normal bowel sounds BACK: normal inspection, no CVA tenderness SKIN: warm/dry, normal color EXTREMITIES: non-tender, normal range of motion NEURO: CN's nml as tested, motor nml, sensation nml, other (initially not oriented to correct time and place; improved in course of visit.) Discharge Clincal Impression: Probable TIA, Mental confusion Referrals: Royal Ferrell MD [Primary Care Provider] - Condition: Stable Disposition: 04 [facility]F Decision to Admit: NO Decision Time: 16:48
[2018-07-10] MEDS ORDERED: 0.9 % SODIUM CHLORIDE 500 ML IV ONE (14:29)
[2018-07-10 15:29] LABS: eGFR (Non-African) > 60
[2018-07-10 16:02] LABS: BASO % 0.8 % (0.0-1.5); EOS % 3.3 % (0.0-6.8); LYMPH ABS # 1.78 thou/uL (0.60-4.00); MCH. 29.7 pg (28.0-34.0); MONOCYTE % 5.9 % (0.0-11.0); MONOCYTE ABS # 0.34 thou/uL (0.00-0.90); PLATELET COUNT 329 thou/uL (130-400)
[2018-07-10 17:35] VITALS: BP 104/42
--- NOTE | 2018-07-10 18:43 | Diagnostic Imaging Report ---
MELINA CAMERON [facility] [address] [facility] [address] [place] [address]. [id number] Report Submission Date: Jul 10, 2018 3:21:49 PM CDT Patient Study Name: EFRAIN FINLEY Date: Jul 10, 2018 2:47:58 PM CDT Modality Type: DX Gender: F Description: CHEST : 37 Institution: [facility] Physician: MELINA CAMERON Ap portable upright radiographs of the chest Clinical history: Fever altered mental status Comparison January 09, 2018 Technique: anterior /posterior portable upright Findings the lung bustamante are less well ventilated. There is cardiomegaly. Bilateral shoulder arthroplasty cervical fusion an epidural catheters are again noted. Cardiomegaly is present. No acute infiltrate is seen. Impression: No acute pulmonary disease Decreased lung field ventilation Electronically signed on Jul 10, 2018 3:21:49 PM CDT by: Macario HUMMEL
--- NOTE | 2018-07-10 18:43 | Diagnostic Imaging Report ---
MELINA CAMERON [facility] [address] [facility] [address] [place] [address]. [id number] Report Submission Date: Jul 10, 2018 3:23:16 PM CDT Patient Study Name: EFRAIN FINLEY Date: Jul 10, 2018 2:46:12 PM CDT Modality Type: CT Gender: F Description: CT BRAIN W/O CONTRAST : 37 Institution: [facility] Physician: MELINA CAMERON CT brain noncontrast Date of study: July 10, 2018 CLINICAL HISTORY: CT HEAD W/O. CHANGE IN MENTAL STATUS TODAY (Hx) / ITS.REASON change in ms Note time : 07/10/2018 4:02:45 PM User : Tabitha Montoya CT HEAD W/O. CHANGE IN MENTAL STATUS TODAY (DICOM Hx) / ITS.REASON fever, change in ms, low SpO2 (Pt comments) TECHNIQUE: 5 mm contiguous axial images of the brain, noncontrast. FINDINGS: There is no evidence of intracranial mass effect, hemorrhage, or acute hydrocephalus. The lateral ventricles are enlarged and the 4th ventricle is midline without shift. No acute brain parenchymal changes or extra-axial fluid collections are identified. There is cerebral atrophy and white matter gliosis. Cerebellar atrophy is present. There is intracranial atherosclerotic vascular calcification. The calvarium is intact. The visualized sinuses and mastoid air cells are clear. IMPRESSION: No acute intracranial process.. Chronic atrophy and white matter gliosis Electronically signed on Jul 10, 2018 3:23:16 PM CDT by: Macario Bhardwaj [facility]ITALJan[facility]
[2018-07-11 06:11] LABS: APPEARANCE,URINE CLEAR (CLEAR); COLOR,URINE YELLOW (YELLOW)
[2018-07-11 06:12] LABS: OCCULT BLOOD,URINE NEGATIVE (NEGATIVE); UROBILINOGEN URINE 0.2 Eu (0.2-1.0)
== END 2018-07-10 17:27 ==
LOC: ED 14:13
DX: R41.0 Disorientation, unspecified (principal)
CPT/HCPCS: 70450; 71045; 80053; 81002; 82550; 83880; 84484; 85025; 85610; 85730; 93005; J7060; 96365; 99285; S1016

== ENCOUNTER 2018-08-23 12:17 | Emergency (ER) | payer MEDICARE, OTHER ==
--- NOTE | 2018-08-23 12:32 | ED Physician Documentation ---
Dyspnea - HISTORIAN Historian: patient - HPI Stated Complaint: shortness of breath Chief Complaint: Dyspnea Onset: other (per correction over the weekend she was noted to have oxygen levels in the 80's ) Duration: continues in ED Initiating Event: other (she has a history of COPD. She has had some vomiting today. She also was not wearing her oxygen as prescribed ) Severity: mild Exacerbated By: nothing Associated Symptoms: denies: chest pain, chest discomfort, productive cough Further Comments: yes (Per ambulance staff she was noted to have low oxygen levels this weekend (she would not keep her oxygen on as prescribed) she had an episode of vomiting and did complain of nausea which has resolved after meds in ambulance. She denies any complaints at bedside. She is currently receiving breathing treatment. No other complaints no further nausea She is no in distress) - ROS CONST: no problems - PAST HX Lung Disease: COPD Allergies/Adverse Reactions: Allergies Allergy/AdvReac Type Severity Reaction Status Date / Time No Known Drug Allergies Allergy Verified 08/23/18 14:40 Home Medications: Ambulatory Orders Medication Instructions Recorded Multivitamin [Tab-A-Norm] 1 each PO DAILY 11/18/14 Ranitidine HCl [Zantac] 150 mg PO D 05/20/15 Folic Acid [FA-8] 0.8 mg PO D 12/17/15 Gabapentin [Neurontin] 300 mg PO BID 06/17/17 Acetaminophen [Tylenol] 650 mg PO Q6H PRN tablet 01/03/18 Atorvastatin Calcium 40 mg PO HS #30 tablet 01/03/18 Bisacodyl [Dulcolax] 5 - 10 mg PO QD PRN #60 tablet. 01/03/18 Docusate Sodium [Colace] 100 mg PO DAILY #30 capsule 01/03/18 Ferrous Sulfate [Feosol] 325 mg PO D #30 tablet 01/03/18 Magnesium Oxide [Magnesium] 400 mg PO BID #60 tablet 01/03/18 Melatonin 5 mg PO PM #30 capsule 01/03/18 Metformin HCl [Glucophage] 500 mg PO DIRECTED #120 tablet 01/03/18 - SOCIAL HX Smoking History: non-smoker Alcohol Use: none Drug Use: none - FAMILY HX Family History: none - VITAL SIGNS Vital Signs: Vital Signs Temp Pulse Resp BP Pulse Ox 104/42 07/10/18 17:27 - REVIEWED ASSESSMENTS Nursing Assessment Reviewed: Yes Vitals Reviewed: Yes Progress - Progress Progress: 1345: continues to deny any nausea or pain. Her oxygen levels have improve (partial nail tamazight removed) HOB increased DG 1430: resting quietly in room - daughter at bedside DG 1435: Discussed with Dr Ferrell and plan will be discussed with daughter DG 1455: results discussed and plan with pt and daughter agreeable DG ED Results Lab/Radiology - Radiology Radiology Impressions: Portable chest History: Difficulty breathing Portable chest dated August 23, 2018 is compared with July 10, 2018 The heart is mildly enlarged. There is mild aortic atherosclerosis. Pulmonary vascularity is normal. There is no confluent infiltrate or pleural effusion. Bilateral total shoulder replacements are present. Impression: Mild cardiomegaly. No active disease. Electronically signed on Aug 23, 2018 1:44:38 PM CDT by: Zaida Lund Dyspnea Physical Exam - EXAM General Appearance: no acute distress, alert EENT: eye inspection normal, no signs of dehydration Neck: nml inspection Respiratory: no resp. distress, wheezes, rhonchi, other (decreased on LLL with physical exam ) CVS: reg. rate & rhythm, no murmur Abdomen: non-tender Skin: color nml Extremities: non-tender, normal range of motion Neuro/Psych: disoriented Discharge Clincal Impression: Congestive heart failure Qualifiers: Heart failure type: other Qualified Code(s): I50.9 - Heart failure, unspecified Referrals: Royal Ferrell MD [Primary Care Provider] - 2 Days Comments: 1. Lasix daily (todays dose given) 20 mg daily x 5 days 2. Follow up with Dr Ferrell in 2-4 days 3. Return to ER for any concerns 4. Meds as prescribed Condition: Stable Disposition: 01 HOME, SELF-CARE Decision to Admit: NO Date of Decison to Admit: 08/23/18 Decision Time: 15:08
[2018-08-23 13:12] LABS: MEAN CORPUSCULAR HEMOGLOBIN 29.1 pg (28.0-34.0)
[2018-08-23 13:13] LABS: BASOPHILS % 0.2 (0.0-1.5); EOSINOPHILS % 0.8 % (0.0-6.8); MONOCYTES % 6.4 % (0.0-11.0); NEUTROPHILS # 3.4 # k/uL (1.4-7.7)
[2018-08-23 13:31] LABS: eGFR (Non-African) > 60
[2018-08-23] MEDS: BUDESONIDE 0.5MG/2ML AMPUL.NEB NEB ONE (13:51)
--- NOTE | 2018-08-23 14:00 | Diagnostic Imaging Report ---
MELANIE NIEVES [facility] [address] [facility] [address] [place], [place]. [address] Report Submission Date: Aug 23, 2018 1:44:38 PM CDT Patient Study Name: EFRAIN FINLEY Date: Aug 23, 2018 1:18:31 PM CDT Modality Type: DX Gender: F Description: CHEST : 37 Institution: [facility] Physician: MELANIE NIEVES Portable chest History: Difficulty breathing Portable chest dated August 23, 2018 is compared with July 10, 2018 The heart is mildly enlarged. There is mild aortic atherosclerosis. Pulmonary vascularity is normal. There is no confluent infiltrate or pleural effusion. Bilateral total shoulder replacements are present. Impression: Mild cardiomegaly. No active disease. Electronically signed on Aug 23, 2018 1:44:38 PM CDT by: Zaida HUMMEL
[2018-08-23] MEDS: FUROSEMIDE 20 MG/2 ML VIAL IVP ONE (14:47)
[2018-08-23 15:30] VITALS: BP 110/32
== END 2018-08-23 15:28 | disposition home or self-care (01) ==
LOC: ED 12:17
DX: I50.9 Heart failure, unspecified (principal)
CPT/HCPCS: 36415; 71045; 80053; 83880; 85025; 93005; J1940; J7626; 94640; 96374; 99284

== ENCOUNTER 2018-08-25 08:57 | Emergency (ER) | payer MEDICARE, OTHER ==
[2018-08-25 09:46] LABS: APPEARANCE,URINE CLOUDY (CLEAR); COLOR,URINE YELLOW (YELLOW)
[2018-08-25 09:47] LABS: OCCULT BLOOD,URINE 2+ (NEGATIVE); UROBILINOGEN URINE 0.2 Eu (0.2-1.0)
--- NOTE | 2018-08-25 10:06 | ED Physician Documentation ---
General Adult - HISTORIAN Historian: paramedics, child (daughter Tonya) - HPI Stated Complaint: Mental Status Changes Chief Complaint: General Adult Additional Information: Seen in this ER on 08/23 for respiratory distress, CHF, decreased sat's but wouldn't leave oxygen on. Worse today. O2 sats at NH in 80's. EMS gave 2L and she normalized. No responsive to verbal stimuli. On arrival in ER, she is not responsive to verbal stimuli. Pursed lip and generally labored breathing with upper airway noises, and with out specific retractions. Oral suction relieved some of this. DNR. No other modifying factors or associated signs. - ROS CONST: no problems - PAST HX Past History: COPD, CHF Allergies/Adverse Reactions: Allergies Allergy/AdvReac Type Severity Reaction Status Date / Time No Known Drug Allergies Allergy Verified 08/23/18 14:40 Home Medications: Ambulatory Orders Medication Instructions Recorded Multivitamin [Tab-A-Norm] 1 each PO DAILY 11/18/14 Ranitidine HCl [Zantac] 150 mg PO D 05/20/15 Folic Acid [FA-8] 0.8 mg PO D 12/17/15 Gabapentin [Neurontin] 300 mg PO BID 06/17/17 Acetaminophen [Tylenol] 650 mg PO Q6H PRN tablet 01/03/18 Atorvastatin Calcium 40 mg PO HS #30 tablet 01/03/18 Bisacodyl [Dulcolax] 5 - 10 mg PO QD PRN #60 tablet. 01/03/18 Docusate Sodium [Colace] 100 mg PO DAILY #30 capsule 01/03/18 Ferrous Sulfate [Feosol] 325 mg PO D #30 tablet 01/03/18 Magnesium Oxide [Magnesium] 400 mg PO BID #60 tablet 01/03/18 Melatonin 5 mg PO PM #30 capsule 01/03/18 Metformin HCl [Glucophage] 500 mg PO DIRECTED #120 tablet 01/03/18 - SOCIAL HX Smoking History: non-smoker - FAMILY HX Family History: No (no signif) - VITAL SIGNS Vital Signs: Vital Signs Temp Pulse Resp BP Pulse Ox 97.1 F L 78 38 H 102/73 90 L 08/25/18 08:57 08/25/18 09:20 08/25/18 08:57 08/25/18 08:57 08/25/18 08:57 - REVIEWED ASSESSMENTS Nursing Assessment Reviewed: Yes Vitals Reviewed: Yes Progress - Progress Progress: Report Submission Date: Aug 25, 2018 10:55:52 AM CDT Patient Study Name: EFRAIN FINLEY Date: Aug 25, 2018 10:14:32 AM CDT Modality Type: CT\SR Gender: F Description: CT CHEST W/ CONTRAST : 39 Institution: [facility] Physician: OSCAR BO - ER Examination: CT chest History: RESPIRATORY DISTRESS PATIENTS POA STATES STARTED ON 08/23/18 AND PROGR ESSIVELY GETTING WORSE - ALSO HAS N/V (Hx) Comparison exams: Plain film dated 23 August 2018 Technique: CT chest with contrast protocol Findings: Interstitial prominence, right greater than left. Peripheral parenchymal scarring. Few peripheral nodular densities. Mild right lung base pleural thickening. Prominent subcarinal and left hilar lymph nodes. Vascular calcifications involving the thoracic aorta. No gross aneurysmal dilation. Cardiac silhouette not enlarged. No pericardial effusion. Coronary vascular calcifications. Lower neck structures without gross abnormality. Degenerative changes of the thoracic vertebral bodies. Artifact from bilateral shoulder prostheses. Limited upper abdominal organ evaluation. Presumed cysts involving the right kidney. Neurostimulator. Impression: Right greater than left interstitial fullness with small right lower lung infiltrate/effusion. Congestive edema versus early infiltrate. Subcarinal and left hilar lymph nodes/danyell fullness - concerning for neoplasia. Correlate with any underlying medical history Electronically signed on Aug 25, 2018 10:55:52 AM CDT by: Karan Mason [id number], spoke with Nahum, house worker general at [facility], three times, this time to relay Head CT results and chemistry results. He will discuss with Dr. Charlton and call me back. 1348, discussed pt wit hDr. Charlton, hospitalist at [facility], who accepts pt for transfer. Will initiate treatment for hyperkalemia. Pt with circumoral and facial cyanosis for last hour. Pt discussed with Dr. Ferrell x2 during this ER visit. ED Results Lab/Radiology - Orders Orders: ED Orders Category Date Time Status Continuous EKG monitoring Q1H Care 08/25/18 09:[address] IV Lock 1T Care 08/25/18 09:[address] CHEST W/ CONTRAST Stat Exams 08/25/18 Ordered CBC/PLATELET/DIFF Routine Lab 08/25/18 09:15 Received TROPONIN I (cTnI) Stat Lab 08/25/18 09:15 Ordered URINALYSIS Routine Lab 08/25/18 09:15 Received EKG WITH COMPARISON Stat Ther 08/25/18 Ordered General Adult Physical Exam - PHYSICAL EXAM GENERAL APPEARANCE: Puse lipped and labored breathing EENT: eye inspection normal, other (dry mucosa, lips) NECK: normal inspection, supple RESPIRATORY: breath sounds normal (upper airway sounds, RR upper 20's. Pulse ox 90's with 2L oxygen) CVS: reg rate & rhythm, heart sounds normal ABDOMEN: soft, normal bowel sounds, no distension, non-tender BACK: normal inspection SKIN: warm/dry, pallor (mild) EXTREMITIES: no evidence of injury, no edema NEURO: CN's nml as tested, motor nml, sensation nml, other (not responsive to verbal stimuli) Discharge Clincal Impression: Hyperkalemia Respiratory failure Qualifiers: Chronicity: acute on chronic Respiratory failure complication: hypoxia Qualified Code(s): J96.21 - Acute and chronic respiratory failure with hypoxia Referrals: Royal Ferrell MD [Primary Care Provider] - 2 Days Condition: Critical Disposition: XFER [id number]-TRM HOSP Decision to Admit: NO Decision Time: 13:48
[2018-08-25] MEDS ORDERED: ONDANSETRON HCL/PF 4 MG/ 2ML VIAL IVP ONE (10:07)
[2018-08-25 10:18] LABS: MEAN CORPUSCULAR HEMOGLOBIN 28.8 pg (28.0-34.0)
[2018-08-25 10:19] LABS: BASOPHILS % 0.3 (0.0-1.5); EOSINOPHILS % 1.2 % (0.0-6.8); NEUTROPHILS # 10.3 # k/uL (1.4-7.7)
[2018-08-25] MEDS ORDERED: cefTRIAXone SODIUM 1 GM in 0.9 % SODIUM CHLORIDE 50 ML IV ONE (11:01)
[2018-08-25] MEDS ORDERED: AZITHROMYCIN 500 MG in 0.9 % SODIUM CHLORIDE 250 ML IV ONE (11:01)
[2018-08-25] MEDS ORDERED: cefTRIAXone SODIUM 1 GM VIAL ONE (11:05)
[2018-08-25] MEDS ORDERED: 0.9 % SODIUM CHLORIDE 100 ML IV ONE (11:05)
[2018-08-25] MEDS ORDERED: FUROSEMIDE 20 MG/2 ML VIAL IVP ONE (11:17)
[2018-08-25] MEDS ORDERED: IPRATROPIUM/ALBUTEROL SULFATE 3 ML AMPUL.NEB NEB ONE ×2 (11:18→11:19)
[2018-08-25] MEDS ORDERED: FUROSEMIDE 20 MG/2 ML VIAL ONE (11:18)
[2018-08-25 12:22] LABS: TOTAL PROTEIN 5.3 g/dL (6.0-8.5)
[2018-08-25] MEDS ORDERED: CALCIUM GLUCONATE 100 MG/ML VIAL IV ONE (13:49)
[2018-08-25] MEDS ORDERED: INSULIN REGULAR, HUMAN 100 UNIT/ML 3ML VIAL IV ONE (13:49)
[2018-08-25] MEDS ORDERED: DEXTROSE 50% 50 ML DISP.SYRIN IVP PRN (13:49)
[2018-08-25] MEDS ORDERED: SODIUM BICARBONATE 50 MEQ/50 ML SYRINGE IV ONE (13:49)
[2018-08-25] MEDS ORDERED: INSULIN REGULAR, HUMAN 100 UNIT/ML 3ML VIAL ONE (13:52)
[2018-08-25] MEDS ORDERED: DEXTROSE 50% 50 ML DISP.SYRIN IVP ONE (13:52)
[2018-08-25] MEDS ORDERED: methylPREDNISolone SOD SUCC 125 MG/2 ML VIAL ONE (13:52)
[2018-08-25] MEDS ORDERED: SODIUM BICARBONATE 50 MEQ/50 ML SYRINGE ONE (13:53)
[2018-08-25 14:18] VITALS: BP 95/31
--- NOTE | 2018-08-26 08:46 | Diagnostic Imaging Report ---
OSCAR BO [facility] [address] [facility] [address] [place], [place]. [address] Report Submission Date: Aug 25, 2018 1:21:50 PM CDT Patient Study Name: EFRAIN FINLEY Date: Aug 25, 2018 12:50:56 PM CDT Modality Type: CT\SR Gender: F Description: CT BRAIN W/O CONTRAST : 39 Institution: [facility] Physician: OSCAR BO Examination: CT head without contrast History: MENTAL STATUS CHANGES Comparison exam: None available 4 direct review. Technique: Noncontrast head CT protocol. Findings: Ventricles and sulci are prominent. Cerebrocerebellar parenchyma demonstrates periventricular low attenuation consistent with small vessel disease. No evidence for parenchymal hemorrhage. No evidence for mass or mass effect. No midline shift. No extra axial fluid collections. Partial visualization of the paranasal sinuses, mastoid air cells, orbits, skull and scalp without gross irregularity. Streak artifact from dental hardware. Impression: Age related changes. No acute parenchymal process. No hemorrhage. Electronically signed on Aug 25, 2018 1:21:50 PM CDT by: Karan HUMMEL
--- NOTE | 2018-08-26 08:48 | Diagnostic Imaging Report ---
OSCAR BO [facility] [address] [facility] [address] [place] [address]. [id number] Report Submission Date: Aug 25, 2018 10:55:52 AM CDT Patient Study Name: EFRAIN FINLEY Date: Aug 25, 2018 10:14:32 AM CDT Modality Type: CT\SR Gender: F Description: CT CHEST W/ CONTRAST : 39 Institution: [facility] Physician: OSCAR BO Examination: CT chest History: RESPIRATORY DISTRESS PATIENTS POA STATES STARTED ON 08/23/18 AND PROGRESSIVELY GETTING WORSE - ALSO HAS N/V (Hx) Comparison exams: Plain film dated 23 August 2018 Technique: CT chest with contrast protocol Findings: Interstitial prominence, right greater than left. Peripheral parenchymal scarring. Few peripheral nodular densities. Mild right lung base pleural thickening. Prominent subcarinal and left hilar lymph nodes. Vascular calcifications involving the thoracic aorta. No gross aneurysmal dilation. Cardiac silhouette not enlarged. No pericardial effusion. Coronary vascular calcifications. Lower neck structures without gross abnormality. Degenerative changes of the thoracic vertebral bodies. Artifact from bilateral shoulder prostheses. Limited upper abdominal organ evaluation. Presumed cysts involving the right kidney. Neurostimulator. Impression: Right greater than left interstitial fullness with small right lower lung infiltrate/effusion. Congestive edema versus early infiltrate. Subcarinal and left hilar lymph nodes/danyell fullness - concerning for neoplasia. Correlate with any underlying medical history Electronically signed on Aug 25, 2018 10:55:52 AM CDT by: Karan HUMMEL
== END 2018-08-25 14:12 | disposition short-term general hospital (02) ==
LOC: ED 08:57
DX: J96.21 Acute and chronic respiratory failure with hypoxia (principal); E87.5 Hyperkalemia; I50.9 Heart failure, unspecified; J44.9 Chronic obstructive pulmonary disease, unspecified
CPT/HCPCS: 51702; 70450; 71260; 80053; 81002; 83605; 83880; 84484; 85025; 87040; 87086; 87186; 93005; J0456; J0610; J0696; J1940; J2405; J2930; J7050; 94640; 96365; 96366; 96368; 96375; 99285; Q9967; S1016

== ENCOUNTER 2018-09-07 12:22 | Emergency (ER) | payer MEDICARE, OTHER ==
--- NOTE | 2018-09-07 12:36 | ED Physician Documentation ---
General Adult - HISTORIAN Historian: patient - HPI Stated Complaint: alterted mental status - improved now Chief Complaint: Altered Mental Status Onset: other (this has been going on for a while ) Timing: better Severity: mild Further Comments: yes (retirement called 911 saying pt was not responsive at all - EMT states pt was responsive when they arrived. Per staff this has been an issue since her [facility] admission. She has had times of confusion and times of lucid thoughts. She has no new injury. She is now talking with no confusion and daughter wants lab to compare to her inpt stay.) Last known Well Code/Unknown Code: Unknown - ROS CONST: no problems - PAST HX Past History: COPD Immunizations: UTD Allergies/Adverse Reactions: Allergies Allergy/AdvReac Type Severity Reaction Status Date / Time No Known Drug Allergies Allergy Verified 09/07/18 15:46 Home Medications: Ambulatory Orders Medication Instructions Recorded Multivitamin [Tab-A-Norm] 1 each PO DAILY 11/18/14 Ranitidine HCl [Zantac] 150 mg PO D 05/20/15 Folic Acid [FA-8] 0.8 mg PO D 12/17/15 Gabapentin [Neurontin] 300 mg PO BID 06/17/17 Acetaminophen [Tylenol] 650 mg PO Q6H PRN tablet 01/03/18 Atorvastatin Calcium 40 mg PO HS #30 tablet 01/03/18 Bisacodyl [Dulcolax] 5 - 10 mg PO QD PRN #60 tablet. 01/03/18 Docusate Sodium [Colace] 100 mg PO DAILY #30 capsule 01/03/18 Ferrous Sulfate [Feosol] 325 mg PO D #30 tablet 01/03/18 Magnesium Oxide [Magnesium] 400 mg PO BID #60 tablet 01/03/18 Melatonin 5 mg PO PM #30 capsule 01/03/18 Metformin HCl [Glucophage] 500 mg PO DIRECTED #120 tablet 01/03/18 - SOCIAL HX Smoking History: non-smoker Alcohol Use: none Drug Use: none - FAMILY HX Family History: No - VITAL SIGNS Vital Signs: Vital Signs Temp Pulse Resp BP Pulse Ox 95/31 08/25/18 14:12 - REVIEWED ASSESSMENTS Nursing Assessment Reviewed: Yes Vitals Reviewed: Yes Progress - Progress Progress: 1415: discussed results with Dr Ferrell - he is in room with pt and daughter DG ED Results Lab/Radiology - Radiology Radiology Impressions: Examination: CT head without contrast History: ALTERED MENTAL STATUS TODAY. UNRESPONSIVE THIS MORNING. HX OF RENAL FAILURE, SEPSIS, AND SEVERE ENCEPHALOPATHY. (Hx) Comparison exam: 25 August 2018 Technique: Noncontrast head CT protocol. Findings: Ventricles and sulci are prominent, though stable. Cerebrocerebellar parenchyma demonstrates periventricular low attenuation consistent with small vessel disease: also stable. No evidence for parenchymal hemorrhage. No evidence for mass or mass effect. No midline shift. No extra axial fluid collections. Partial visualization of the paranasal sinuses, mastoid air cells, orbits, skull and scalp without gross irregularity. Impression: Stable age related changes. No acute parenchymal process. No hemorrhage. Electronically signed on Sep 07, 2018 1:56:37 PM [employer] by: Karan Mason Examination: Portable chest History: Evaluate lungs COUGH TODAY. Comparison exam: 10 July 2018 Findings: Single view of the chest demonstrates a normal cardiac and mediastinal silhouette. Tortuous aorta with vascular calcifications. Chronic interstitial changes. Lung bustamante without focal infiltrate. No blunting of the costophrenic margins. Bilateral shoulder replacement. Spinal stimulator wires. Impression: Chronic interstitial changes. No acute appearing pulmonary process. Electronically signed on Sep 07, 2018 1:59:27 PM [employer] by: Karan Mason General Adult Physical Exam - PHYSICAL EXAM GENERAL APPEARANCE: no distress EENT: eye inspection normal, ENT inspection normal NECK: normal inspection RESPIRATORY: no resp distress, chest non-tender, wheezes CVS: reg rate & rhythm, heart sounds normal ABDOMEN: soft, no distension BACK: normal inspection SKIN: warm/dry, normal color EXTREMITIES: non-tender, normal range of motion, no evidence of injury, no edema NEURO: oriented X3 Discharge Clincal Impression: Mental confusion Referrals: Royal Ferrell MD [Primary Care Provider] - 2 Days Comments: 1. Return to Intermediate 2. No new orders 3. Follow up with PCP in 2-4 days if no improvement 4. Return to ER for any concerns Condition: Stable Disposition: 01 HOME, SELF-CARE Decision to Admit: NO Date of Decison to Admit: 09/07/18 Decision Time: 14:56
[2018-09-07 13:19] LABS: ABG BASE EXCESS 8.2 (-2 - +2); ABG PH 7.48 (7.35-7.45)
[2018-09-07 13:37] LABS: MEAN CORPUSCULAR HEMOGLOBIN 28.4 pg (28.0-34.0)
[2018-09-07 13:38] LABS: BASOPHILS % 0.4 (0.0-1.5); EOSINOPHILS % 3.2 % (0.0-6.8); MONOCYTES % 6.1 % (0.0-11.0); NEUTROPHILS # 4.2 # k/uL (1.4-7.7)
[2018-09-07 13:46] LABS: eGFR (Non-African) 42
[2018-09-07] MEDS ORDERED: 0.9 % SODIUM CHLORIDE 1,000 ML IV ONE (13:53)
--- NOTE | 2018-09-07 14:28 | Diagnostic Imaging Report ---
MELANIE NIEVES [facility] [address] [facility] [address] [place], [place]. [address] Report Submission Date: Sep 07, 2018 1:56:37 PM MACHINE FILLER Patient Study Name: EFRAIN FINLEY Date: Sep 07, 2018 1:28:44 PM MACHINE FILLER Modality Type: CT Gender: F Description: CT BRAIN W/O CONTRAST : 39 Institution: [facility] Physician: MELANIE NIEVES Examination: CT head without contrast History: ALTERED MENTAL STATUS TODAY. UNRESPONSIVE THIS MORNING. HX OF RENAL FAILURE, SEPSIS, AND SEVERE ENCEPHALOPATHY. (Hx) Comparison exam: 25 August 2018 Technique: Noncontrast head CT protocol. Findings: Ventricles and sulci are prominent, though stable. Cerebrocerebellar parenchyma demonstrates periventricular low attenuation consistent with small vessel disease: also stable. No evidence for parenchymal hemorrhage. No evidence for mass or mass effect. No midline shift. No extra axial fluid collections. Partial visualization of the paranasal sinuses, mastoid air cells, orbits, skull and scalp without gross irregularity. Impression: Stable age related changes. No acute parenchymal process. No hemorrhage. Electronically signed on Sep 07, 2018 1:56:37 PM MACHINE FILLER by: Karan HUMMEL
--- NOTE | 2018-09-07 14:29 | Diagnostic Imaging Report ---
MELANIE NIEVES [facility] [address] [facility] [address] [place], [place]. [address] Report Submission Date: Sep 07, 2018 1:59:27 PM DIRECTOR OF OPERATIONS Patient Study Name: EFRAIN FINLEY Date: Sep 07, 2018 1:26:40 PM DIRECTOR OF OPERATIONS Modality Type: DX Gender: F Description: CHEST : 39 Institution: [facility] Physician: MELANIE NIEVES Examination: Portable chest History: Evaluate lungs COUGH TODAY. Comparison exam: 10 July 2018 Findings: Single view of the chest demonstrates a normal cardiac and mediastinal silhouette. Tortuous aorta with vascular calcifications. Chronic interstitial changes. Lung bustamante without focal infiltrate. No blunting of the costophrenic margins. Bilateral shoulder replacement. Spinal stimulator wires. Impression: Chronic interstitial changes. No acute appearing pulmonary process. Electronically signed on Sep 07, 2018 1:59:27 PM DIRECTOR OF OPERATIONS by: Karan HUMMEL
[2018-09-07 15:52] VITALS: BP 142/55
[2018-09-07 15:52] LABS: APPEARANCE,URINE CLEAR (CLEAR); COLOR,URINE YELLOW (YELLOW); OCCULT BLOOD,URINE NEGATIVE (NEGATIVE); PH URINE 8.5 (5.0 - 8.0); UROBILINOGEN URINE 0.2 Eu (0.2-1.0)
== END 2018-09-07 15:10 | disposition home or self-care (01) ==
LOC: ED 12:22
DX: R41.82 Altered mental status, unspecified (principal); J44.9 Chronic obstructive pulmonary disease, unspecified
CPT/HCPCS: 36600; 70450; 71045; 80053; 81002; 82803; 83880; 85025; 96365; 96366; 99283; S1016